=== PATIENT | female | born 1940 | race African-American/Black ===

== ENCOUNTER 2020-02-11 08:52 | Outpatient (CLI) | payer MEDICARE, OTHER ==
[~2020-02-11 08:52] MED LIST: ENALAPRIL MALEAT5 MG ORAL; PANTOPRAZOLE SO40 MG ORAL
--- NOTE | 2020-02-11 18:15 | Consultation ---
DATE OF CONSULTATION: 02/11/2020 CONSULTING PHYSICIAN: Eligio Andrade MD. REFERRING PHYSICIAN: Dr. Winkler. CHIEF COMPLAINT: Anemia, weight loss. HISTORY OF PRESENT ILLNESS: Most of history per chart. This is a 79-year-old female, recently admitted to [facility] back in seems to be in the beginning of October 2019 where she had anemia, had endoscopy and colonoscopy by . Endoscopy showed multiple AVMs in the stomach and duodenum, which required Hemoclip placement and also cauterization. Colonoscopy apparently was normal. The patient is in followup with Dr. Winkler, who has referred to us since the patient had another drop in hemoglobin and hematocrit, black stools, and significant weight loss. PAST MEDICAL HISTORY: 1. History of bowel obstruction requiring surgery. 2. Hypertension. 3. Dementia. 4. History of multiple intestinal AVM. PAST SURGICAL HISTORY: Colon resection. FAMILY HISTORY: Noncontributory. SOCIAL HISTORY: The patient quit tobacco and alcohol many years ago. Denies any IV drug abuse. ALLERGIES: To penicillin. MEDICATIONS: Omeprazole and enalapril. Please see medication reconciliation list. REVIEW OF SYSTEMS: Limited, but positive for constipation, dark stools, and weight loss. PHYSICAL EXAMINATION: VITAL SIGNS: Temperature 98.2, blood pressure 130/60, pulse 80, respirations 20. HEENT: Normocephalic and atraumatic. Mildly pale conjunctivae. NECK: Supple. No evidence of obvious lymphadenopathy. CARDIOVASCULAR: Regular rhythm. Plus S1, S2. LUNGS: Clear to auscultation bilaterally. ABDOMEN: Positive bowel sounds. Soft and nontender. No rebound. No guarding. No peritoneal sign. EXTREMITIES: No cyanosis. No clubbing. No edema. ASSESSMENT: This is a 79-year-old female with history of multiple intestinal AVMs and bleeding, now with drop in hemoglobin and hematocrit and black stools. Also, weight loss and constipation. PLAN: The patient needs to get COVID checked and if it is negative, we will schedule for endoscopy. Continue on PPI. Monitor hemoglobin and hematocrit. Transfuse as needed. In terms of constipation, the patient to be started on Linzess 145 one tablet p.o. daily. We will adjust the dose based on the response to 145. In terms of weight loss, the patient is scheduled to get a CT by Dr. Winkler next week, which we will follow. We also recommend that thyroid tests and tumor markers test on the procedure day. I want to thank, Dr. Winkler, for this kind referral. Eligio Dm Andrade DR: Génesis JOB#: [id number] CC:
[2020-02-12] MEDS ORDERED: ASPIRIN81 MG ORAL (17:31)
[2020-02-12] MEDS ORDERED: LINZESS145 MCG PO (17:31)
== END 2020-02-11 10:52 | disposition home or self-care (01) ==
LOC: PAN 08:52
DX: D64.9 Anemia, unspecified (principal); R63.4 Abnormal weight loss; I10 Essential (primary) hypertension; F03.90 Unspecified dementia, unspecified severity, without behavioral disturbance, psychotic disturbance, mood disturbance, and anxiety; Z88.0 Allergy status to penicillin; K59.00 Constipation, unspecified
CPT/HCPCS: G0463

== ENCOUNTER 2020-02-12 09:16 | Inpatient (IN) | payer MEDICARE, OTHER ==
[~2020-02-12] VITALS: Ht 165.1 cm; Wt 43.1 kg
[2020-02-12] VITALS (7 sets, daily range): BP systolic 107–137; BP diastolic 51–79
--- NOTE | 2020-02-12 09:28 | Emergency Room Report ---
History of Present Illness General Chief Complaint: To Be Triaged Source: Family Member - daughter Present Illness HPI Patient is a 79-year-old female past medical history of AVM with recurrent bleeds and dementia who was brought into the emergency room by her daughter from her oncologist office for anemia. Her daughter patient has intestinal bleeding and went to see her oncologist and contract serviceman who told her that her mother was anemic and needed a blood transfusion. History is limited due to the fact that the patient is demented. Allergies: Coded Allergies: No Known Allergies (Unverified , 08/10/18) Patient History Reviewed Nursing Documentation: PMH: Agreed; PSxH: Agreed Nursing Documentation-PMH Hx Cardiac Problems: Yes Hx Hypertension: Yes Hx Cancer: No Hx Gastrointestinal Problems: Yes Hx Neurological Problems: No Review of Systems All Other Systems: limited - dementia Physical Exam Sp02 EP Interpretation: reviewed, normal General Appearance: no apparent distress, alert, non-toxic Head: normocephalic, atraumatic Eyes: bilateral eye normal inspection, bilateral eye PERRL ENT: hearing grossly normal, normal pharynx, no angioedema, normal voice Neck: full range of motion, supple/symm/no masses Respiratory: chest non-tender, lungs clear, normal breath sounds, speaking full sentences Cardiovascular #1: normal inspection Rectal: black stool, heme positive stool Genitourinary: normal inspection, no CVA tenderness Musculoskeletal: back normal, normal range of motion, gait/station normal, non- tender Psychiatric: other - demetia Skin: no rash Lymphatic: no adenopathy Procedures Critical Care Time Critical Care Time Total critical care time: Approximately 35 minutes. Due to a high probability of clinically significant, life threatening deterioration, the patient required my highest level of preparedness to intervene emergently and I personally spent this critical care time directly and personally managing the patient. This critical care time included obtaining a history; examining the patient; pulse oximetry; ordering and review of studies; arranging urgent treatment with development of a management plan; evaluation of patient's response to treatment ; frequent reassessment; and, discussions with other providers.This critical care time was performed to assess and manage the high probability of imminent, life-threatening deterioration that could result in multi-organ failure. It was exclusive of separately billable procedures and treating other patients and teaching time. Please see MDM section and the rest of the note for further information on patient assessment and treatment. Medical Decision Making Diagnostic Impression: Primary Impression: Upper GI bleed Additional Impression: Anemia ER Course Patient presents with upper GI bleed. Hemoglobin 8.2 with active bleeding. I have ordered for 1 unit of packed red blood cells. Otherwise patient has no electrolyte abnormalities. Her GI doctor is and [facility] Dr. Rendon. Patient admitted for further treatment and evaluation. Laboratory Tests Test 02/12/20 09:21 White Blood Count 10.2 K/UL (4.8-10.8) Red Blood Count 3.66 M/UL (4.20-5.40) L Hemoglobin 8.2 G/DL (12.0-16.0) L Hematocrit 26.3 % (37.0-47.0) L Mean Corpuscular Volume 72 FL (80-99) L Mean Corpuscular Hemoglobin 22.3 PG (27.0-31.0) L Mean Corpuscular Hemoglobin Concent 31.1 G/DL (32.0-36.0) L Red Cell Distribution Width 14.6 % (11.6-14.8) Platelet Count 385 K/UL (150-450) Mean Platelet Volume 5.9 FL (6.5-10.1) L Neutrophils (%) (Auto) 69.7 % (45.0-75.0) Lymphocytes (%) (Auto) 21.3 % (20.0-45.0) Monocytes (%) (Auto) 7.3 % (1.0-10.0) Eosinophils (%) (Auto) 0.6 % (0.0-3.0) Basophils (%) (Auto) 1.1 % (0.0-2.0) Prothrombin Time 10.4 SEC (9.30-11.50) Prothrombin Time INR 1.0 (0.9-1.1) Activated Partial Thromboplast Time 26 SEC (23-33) Sodium Level 139 MMOL/L (136-145) Potassium Level 4.6 MMOL/L (3.5-5.1) Chloride Level 106 MMOL/L (98-107) Carbon Dioxide Level 24 MMOL/L (21-32) Anion Gap 9 mmol/L (5-15) Blood Urea Nitrogen 14 mg/dL (7-18) Creatinine 0.8 MG/DL (0.55-1.30) Estimated Glomerular Filtration Rate > 60 mL/min (>60) Glucose Level 92 MG/DL (74-106) Calcium Level 8.8 MG/DL (8.5-10.1) Magnesium Level 2.0 MG/DL (1.8-2.4) Total Bilirubin 0.2 MG/DL (0.2-1.0) Aspartate Amino Transferase (AST) 22 U/L (15-37) Alanine Aminotransferase (ALT) 21 U/L (12-78) Alkaline Phosphatase 59 U/L (46-116) Total Protein 7.2 G/DL (6.4-8.2) Albumin 4.0 G/DL (3.4-5.0) Globulin 3.2 g/dL Albumin/Globulin Ratio 1.3 (1.0-2.7) Lipase 135 U/L (73-393) Rhythm Strip Diag. Results Rhythm Strip Time: 11:18 EP Interpretation: yes - MD Darlene Rate: 68 Rhythm: NSR, no PVC's, no ectopy Disposition: ADMITTED INPATIENT Condition: Critical Physician Consult: Malaika Garcia M.D. February 12, 2020 09:28
[2020-02-12] MEDS ORDERED: Pantoprazole Inj IVP ONE (09:30)
[2020-02-12] MEDS ORDERED: Pantoprazole 80 MG in NS 250 ML IV ONE (09:30)
--- NOTE | 2020-02-12 09:30 | NUR ---
ED Nurse Note: Pt brought in by daughter to ER from Dr. Winkler's office d/t GI bleed and hgb of 7.5. Respiraitons even and unlabored on room air. Vitals stable as documented.
--- NOTE | 2020-02-12 09:50 | NUR ---
ED Nurse Note: DAUGHTER- LETRICE LESLIE- GRAND SON
[2020-02-12 10:10] LABS: BASOPHILS % (AUTO) 1.1 % (0.0-2.0); EOSINOPHILS % (AUTO) 0.6 % (0.0-3.0); HEMATOCRIT 26.3 % (37.0-47.0); HEMOGLOBIN 8.2 G/DL (12.0-16.0); LYMPHOCYTES % (AUTO) 21.3 % (20.0-45.0); MEAN CORPUSCULAR VOLUME 72 FL (80-99); MONOCYTES % (AUTO) 7.3 % (1.0-10.0); NEUTROPHILS % (AUTO) 69.7 % (45.0-75.0); PLATELET COUNT 385 K/UL (150-450); RED BLOOD COUNT 3.66 M/UL (4.20-5.40); RED CELL DISTRIBUTION WIDTH 14.6 % (11.6-14.8); WHITE BLOOD COUNT 10.2 K/UL (4.8-10.8)
[2020-02-12 10:24] LABS: ANION GAP 9 mmol/L (5-15); BLOOD UREA NITROGEN 14 mg/dL (7-18); CALCIUM 8.8 MG/DL (8.5-10.1); CARBON DIOXIDE 24 MMOL/L (21-32); CHLORIDE 106 MMOL/L (98-107); CREATININE 0.8 MG/DL (0.55-1.30); POTASSIUM 4.6 MMOL/L (3.5-5.1); SODIUM 139 MMOL/L (136-145)
[2020-02-12 10:28] LABS: ALANINE AMINOTRANSFERASE 21 U/L (12-78); ALBUMIN/GLOBULIN RATIO 1.3 (1.0-2.7); ALKALINE PHOSPHATASE 59 U/L (46-116); ASPARTATE AMINO TRANSFERASE 22 U/L (15-37); BILIRUBIN,TOTAL 0.2 MG/DL (0.2-1.0)
--- NOTE | 2020-02-12 11:37 | NUR ---
ED Nurse Note: REPORT GIVEN TO MAGGIE AMBROSE
--- NOTE | 2020-02-12 12:00 | NUR ---
NURSE NOTES: Received report from Gabriella SERRANO, pt a/a/o x1 laying in bed with no signs of distress or other issues at this time. IV on the right BOUDREAUX gauge #20 . per report pt needs to get a unit of PRBC. awaiting from lab to call us when blood is ready. RN will review other orders and will carryon as needed as well will call MD to get additional admission orders. call light within reach. bed in lowest position, side rales up x2. I will f/u as needed.
--- NOTE | 2020-02-12 12:00 | NUR ---
ED Nurse Note: Pt transferred safely to 3E. Belongings verified.
--- NOTE | 2020-02-12 12:30 | NUR ---
NURSE NOTES: RN called patients [facility] to obtain blood consent. Verifies with Asad ALCALA. - also to ask for past medical HX of the patient however pt's daughter is not aware all medical condition of the patient she only mentioned that pt was going to have a procedure this coming Monday at 07:00. in [place] by Dr. Guzman. RN called Dr. Guzman's office to notify that pt is in house. I will f/u as needed.
[2020-02-12] MEDS: Pantoprazole Inj IVP SCH ×2 (13:00→20:53)
[2020-02-12] MEDS ORDERED: Acetaminophen 500mg (ES) tab ORAL PRN (13:00)
--- NOTE | 2020-02-12 14:16 | General Progress Note ---
Assessment/Plan Assessment/Plan: 1. History of bowel obstruction requiring surgery. 2. Hypertension. 3. Dementia. 4. History of multiple intestinal AVM. pending blood transfusion plan EGD and enteroscopy for tomorrow Subjective ROS Limited/Unobtainable: No Allergies: Coded Allergies: No Known Allergies (Unverified , 08/10/18) Objective Last 24 Hour Vital Signs Date Time Temp Pulse Resp B/P (MAP) Pulse Ox O2 Delivery O2 Flow Rate FiO2 02/12/20 12:00 97.8 73 17 111/58 96 Room Air 02/12/20 11:30 97.4 69 17 107/51 95 Room Air 02/12/20 09:30 72 19 Room Air 02/12/20 09:30 98.4 78 19 121/79 97 Room Air 02/12/20 09:16 98.4 75 19 124/75 (91) 96 Room Air Laboratory Tests 02/12/20 09:21: White Blood Count 10.2, Red Blood Count 3.66L, Hemoglobin 8.2L, Hematocrit 26.3L , Mean Corpuscular Volume 72L, Mean Corpuscular Hemoglobin 22.3L, Mean Corpuscular Hemoglobin Concent 31.1L, Red Cell Distribution Width 14.6, Platelet Count 385, Mean Platelet Volume 5.9L, Neutrophils (%) (Auto) 69.7, Lymphocytes (%) (Auto) 21.3, Monocytes (%) (Auto) 7.3, Eosinophils (%) (Auto) 0.6, Basophils (%) (Auto) 1.1, Prothrombin Time 10.4, Prothromb Time International Ratio 1.0, Activated Partial Thromboplast Time 26, Sodium Level 139, Potassium Level 4.6, Chloride Level 106, Carbon Dioxide Level 24, Anion Gap 9, Blood Urea Nitrogen 14, Creatinine 0.8, Estimat Glomerular Filtration Rate > 60, Glucose Level 92, Calcium Level 8.8, Magnesium Level 2.0, Total Bilirubin 0.2, Aspartate Amino Transf (AST/SGOT) 22, Alanine Aminotransferase ( ALT/SGPT) 21, Alkaline Phosphatase 59, Total Protein 7.2, Albumin 4.0, Globulin 3.2, Albumin/Globulin Ratio 1.3, Lipase 135 Height (Feet): 5 Height (Inches): 4.00 Weight (Pounds): 115 General Appearance: alert EENT: normal ENT inspection Neck: supple Cardiovascular: normal rate Respiratory/Chest: decreased breath sounds Abdomen: normal bowel sounds, non tender, soft Extremities: non-tender Eligio Andrade MD February 12, 2020 14:15
--- NOTE | 2020-02-12 17:00 | NUR ---
NURSE NOTES: Blood transfusing done with no signs of adverse reaction at this time we will continue to monitor. VS: 97.9, 18, 137/63, 94% RA
[2020-02-12] MEDS ORDERED: ASPIRIN81 MG ORAL (17:31)
[2020-02-12] MEDS ORDERED: LINZESS145 MCG PO (17:31)
--- NOTE | 2020-02-12 19:20 | NUR ---
Received report from MAGGIE Ramirez. Received pt lying in bed, awake, confused, unable to follow commands. No GI bleed noted. IV patent and intact. Bed alarm on, side rails up x 2, call light within reach. Will continue to monitor.
--- NOTE | 2020-02-12 20:23 | NUR ---
HAND-OFF: Report given to William Sheth pt in stable condition.
[2020-02-12 23:42] LABS: BASOPHILS % (AUTO) 1.2 % (0.0-2.0); EOSINOPHILS % (AUTO) 1.2 % (0.0-3.0); HEMATOCRIT 29.8 % (37.0-47.0); HEMOGLOBIN 9.9 G/DL (12.0-16.0); LYMPHOCYTES % (AUTO) 27.3 % (20.0-45.0); MEAN CORPUSCULAR VOLUME 72 FL (80-99); MONOCYTES % (AUTO) 7.7 % (1.0-10.0); NEUTROPHILS % (AUTO) 62.6 % (45.0-75.0); PLATELET COUNT 339 K/UL (150-450); RED BLOOD COUNT 4.13 M/UL (4.20-5.40); RED CELL DISTRIBUTION WIDTH 15.3 % (11.6-14.8); WHITE BLOOD COUNT 7.7 K/UL (4.8-10.8)
[2020-02-13] VITALS (10 sets, daily range): BP systolic 95–143; BP diastolic 53–82
--- NOTE | 2020-02-13 03:15 | History and Physical Report ---
DATE OF ADMISSION: 02/12/2020 CHIEF COMPLAINT: Anemia, possible GI bleed. HISTORY OF PRESENT ILLNESS: Patient is a 79-year-old female. She has a history of hypertensive heart disease. She has a prior history of colon resection for a possible bowel obstruction. She was previously admitted to [facility] [place] approximately 2 to 3 months ago for UTI. At that time, she was found to have GI bleeding. She underwent endoscopy and had several AVMs that required hemoclip placement. She had been stable. According to the family members, she has been having black stools now for "months." She saw her dry box operator who noted patient was more anemic and there was concern about possible GI bleed and she was sent to the emergency room. On evaluation there, her hemoglobin was 8.2. Patient is currently being transfused and is now being admitted for further evaluation for acute GI bleed. Patient has dementia at baseline. She is unable to provide any additional history. PAST MEDICAL HISTORY: As above. PAST SURGICAL HISTORY: As above. CURRENT MEDICATIONS: Reconciled and reviewed. ALLERGIES: Include penicillin. FAMILY HISTORY: Noncontributory. SOCIAL HISTORY: There is no known history of tobacco, ethanol, or drugs. REVIEW OF SYSTEMS: From the patient is unobtainable as she is confused. PHYSICAL EXAMINATION: VITAL SIGNS: Temperature 97.8, pulse 73, respirations 17, blood pressure 111/58. GENERAL: Patient is a thin elderly female, in no apparent distress. She is awake, alert, follows simple commands, but is confused. HEENT: Head is normocephalic, atraumatic. Oropharynx is clear. Mucous membranes are moist. NECK: Supple. There is no adenopathy or jugular venous distention. HEART: Regular rate and rhythm without murmurs, rubs, or gallops. LUNGS: Clear to auscultation bilaterally. ABDOMEN: Soft, nontender, nondistended. EXTREMITIES: Without clubbing, cyanosis, or edema. NEUROLOGICAL: Patient is confused, but does move all four extremities. Motor strength is 5/5 bilaterally. LABORATORY DATA: Labs showed white count of 10, hemoglobin 8.2. Sodium 139, potassium is 4.6, creatinine of 0.8. ASSESSMENT: This is a pleasant 79-year-old female with history of hypertension, prior history of GI bleed secondary to AVMs admitted with complaints of recurrent anemia and possible GI bleed. PLAN: 1. IV proton pump inhibitor. 2. Clear liquid diet. 3. IV fluids. 4. Hold aspirin. 5. Transfuse for hemoglobin greater than 8. 6. Endoscopy per GI. Rob Garcia M.D. DR: KRISTINE JOB#: [id number] CC:
--- NOTE | 2020-02-13 07:35 | NUR ---
NURSE NOTES: Patient is in bed asleep. Stable. Breathing is even and unlabored. No visible signs of distress noted. Patient is in bed in locked and lowest position with call light within reach. All safety measures provided. Will continue to monitor.
--- NOTE | 2020-02-13 07:49 | General Progress Note ---
Assessment/Plan Problem List: (1) Encephalopathy acute ICD Codes: G93.40 - Encephalopathy, unspecified SNOMED: 82578407, 461782188 (2) Anemia ICD Codes: D64.9 - Anemia, unspecified SNOMED: 458915601 (3) Upper GI bleed ICD Codes: K92.2 - Gastrointestinal hemorrhage, unspecified SNOMED: 13024903 Status: stable Assessment/Plan: npo ivf IV ppi scd endoscopy today Subjective ROS Limited/Unobtainable: Yes Constitutional: Reports: malaise, weakness HEENT: Reports: no symptoms Cardiovascular: Reports: no symptoms Respiratory: Reports: cough Gastrointestinal/Abdominal: Reports: blood in stool Genitourinary: Reports: no symptoms Neurologic/Psychiatric: Reports: pre-existing deficit Endocrine: Reports: no symptoms Hematologic/Lymphatic: Reports: anemia Allergies: Coded Allergies: PENICILLINS (Verified Allergy, Unknown, 02/12/20) All Systems: reviewed and negative except above Subjective no events. confused at baseline. s/p 1 unit prbcs. on PPI. npo for endoscopy today. Objective Last 24 Hour Vital Signs Date Time Temp Pulse Resp B/P (MAP) Pulse Ox O2 Delivery O2 Flow Rate FiO2 02/13/20 04:00 97.4 73 17 123/68 (86) 96 02/13/20 00:00 97.8 71 17 143/60 (87) 96 02/12/20 21:00 Room Air 02/12/20 20:00 97.6 68 18 127/66 (86) 97 02/12/20 16:00 98.0 85 18 120/75 (90) 94 02/12/20 15:49 Room Air 02/12/20 13:00 97.8 72 18 113/72 (86) 94 02/12/20 12:30 97.7 72 18 129/66 (87) 94 02/12/20 12:00 97.8 73 17 111/58 96 Room Air 02/12/20 12:00 97.9 78 18 137/63 (87) 96 02/12/20 11:30 97.4 69 17 107/51 95 Room Air 02/12/20 09:30 72 19 Room Air 02/12/20 09:30 98.4 78 19 121/79 97 Room Air 02/12/20 09:16 98.4 75 19 124/75 (91) 96 Room Air Intake and Output 5/13/20 5/14/20 19:00 07:00 Intake Total 1291 ml Output Total 250 ml Balance 1291 ml -250 ml Intake Oral 236 ml IV Total 1055 ml Output Urine Total 250 ml # Bowel Movements 1 Laboratory Tests 02/12/20 09:21: White Blood Count 10.2, Red Blood Count 3.66L, Hemoglobin 8.2L, Hematocrit 26.3L , Mean Corpuscular Volume 72L, Mean Corpuscular Hemoglobin 22.3L, Mean Corpuscular Hemoglobin Concent 31.1L, Red Cell Distribution Width 14.6, Platelet Count 385, Mean Platelet Volume 5.9L, Neutrophils (%) (Auto) 69.7, Lymphocytes (%) (Auto) 21.3, Monocytes (%) (Auto) 7.3, Eosinophils (%) (Auto) 0.6, Basophils (%) (Auto) 1.1, Prothrombin Time 10.4, Prothromb Time International Ratio 1.0, Activated Partial Thromboplast Time 26, Sodium Level 139, Potassium Level 4.6, Chloride Level 106, Carbon Dioxide Level 24, Anion Gap 9, Blood Urea Nitrogen 14, Creatinine 0.8, Estimat Glomerular Filtration Rate > 60, Glucose Level 92, Calcium Level 8.8, Magnesium Level 2.0, Total Bilirubin 0.2, Aspartate Amino Transf (AST/SGOT) 22, Alanine Aminotransferase ( ALT/SGPT) 21, Alkaline Phosphatase 59, Total Protein 7.2, Albumin 4.0, Globulin 3.2, Albumin/Globulin Ratio 1.3, Lipase 135 02/12/20 23:05: White Blood Count 7.7, Red Blood Count 4.13L, Hemoglobin 9.9L, Hematocrit 29.8L , Mean Corpuscular Volume 72L, Mean Corpuscular Hemoglobin 23.9L, Mean Corpuscular Hemoglobin Concent 33.1, Red Cell Distribution Width 15.3H, Platelet Count 339, Mean Platelet Volume 5.6L, Neutrophils (%) (Auto) 62.6, Lymphocytes (%) (Auto) 27.3, Monocytes (%) (Auto) 7.7, Eosinophils (%) (Auto) 1.2, Basophils (%) (Auto) 1.2 Height (Feet): 5 Height (Inches): 5.00 Weight (Pounds): 232 General Appearance: WD/WN, alert, confused EENT: PERRL/EOMI, normal ENT inspection Neck: non-tender, normal alignment, supple Cardiovascular: normal peripheral pulses, normal rate, regular rhythm Respiratory/Chest: chest wall non-tender, lungs clear, normal breath sounds, no respiratory distress, no accessory muscle use Abdomen: normal bowel sounds, non tender, soft, no organomegaly Edema: no edema noted Arm (L), no edema noted Arm (R), no edema noted Leg (L), no edema noted Leg (R), no edema noted Pedal (L), no edema noted Pedal (R), no edema noted Generalized Neurologic: anodic operator II-XII grossly normal, responsive, disoriented Skin: normal pigmentation Rob Garcia MD February 13, 2020 07:49
[2020-02-13] MEDS: Pantoprazole Inj IVP SCH ×2 (08:29→21:13)
--- NOTE | 2020-02-13 08:30 | NUR ---
NURSE NOTES: SCD on as ordered.
[2020-02-13 08:32] LABS: BASOPHILS % (AUTO) 0.9 % (0.0-2.0); HEMATOCRIT 30.5 % (37.0-47.0); HEMOGLOBIN 9.7 G/DL (12.0-16.0); LYMPHOCYTES % (AUTO) 22.8 % (20.0-45.0); MEAN CORPUSCULAR VOLUME 74 FL (80-99); MONOCYTES % (AUTO) 9.2 % (1.0-10.0); PLATELET COUNT 365 K/UL (150-450); RED BLOOD COUNT 4.14 M/UL (4.20-5.40); RED CELL DISTRIBUTION WIDTH 15.3 % (11.6-14.8); WHITE BLOOD COUNT 6.6 K/UL (4.8-10.8)
--- NOTE | 2020-02-13 08:41 | Anethesia Preoperative Eval ---
Anesthesia Pre-op PMH/ROS General Date of Evaluation: February 13, 2020 Time of Evaluation: 08:37 Anesthesiologist: cathi ASA Score: ASA 4 Mallampati Score Class I : Soft palate, uvula, fauces, pillars visible Class II: Soft palate, uvula, fauces visible Class III: Soft palate, base of uvula visible Class IV: Only hard plate visible Mallampati Classification: Class III Surgeon: kade Diagnosis: gi bleed, anemia Surgical Procedure: enteroscopy w/ ablation Anesthesia History: none Social History: smoking - status unknown Family History: no anesthesia problems Allergies: Coded Allergies: PENICILLINS (Verified Allergy, Unknown, 02/12/20) Medications: see eMAR Patient NPO?: Yes Past Medical History Cardiovascular: Reports: HTN, other - avm Gastrointestinal/Genitourinary: Reports: GERD, other - gi bleed, hx/o bowel obstruction, urinary incontinence Neurologic/Psychiatric: Reports: dementia, other - encephalopathy, muscle weakness Hematology/Immune: Reports: anemia Anesthesia Pre-op Phys. Exam Physician Exam Last Vital Signs Date Time Temp Pulse Resp B/P (MAP) Pulse Ox O2 Delivery O2 Flow Rate FiO2 02/13/20 04:00 97.4 73 17 123/68 (86) 96 02/12/20 21:00 Room Air Constitutional: NAD Neurologic: other - contracted, confused Cardiovascular: RRR Respiratory: CTA Gastrointestinal: S/NT/ND Airway Exam Mallampati Score: Class II MO: limited Neck: flexible TMD: 2fb ROM: limited Teeth: missing Anesthesia Pre-op A/P Labs Hematology Test 02/12/20 09:21 02/12/20 23:05 02/13/20 07:55 White Blood Count 10.2 K/UL (4.8-10.8) 7.7 K/UL (4.8-10.8) 6.6 K/UL (4.8-10.8) Red Blood Count 3.66 M/UL (4.20-5.40) L 4.13 M/UL (4.20-5.40) L 4.14 M/UL (4.20-5.40) L Hemoglobin 8.2 G/DL (12.0-16.0) L 9.9 G/DL (12.0-16.0) L 9.7 G/DL (12.0-16.0) L Hematocrit 26.3 % (37.0-47.0) L 29.8 % (37.0-47.0) L 30.5 % (37.0-47.0) L Mean Corpuscular Volume 72 FL (80-99) L 72 FL (80-99) L 74 FL (80-99) L Mean Corpuscular Hemoglobin 22.3 PG (27.0-31.0) L 23.9 PG (27.0-31.0) L 23.4 PG (27.0-31.0) L Mean Corpuscular Hemoglobin Concent 31.1 G/DL (32.0-36.0) L 33.1 G/DL (32.0-36.0) 31.6 G/DL (32.0-36.0) L Red Cell Distribution Width 14.6 % (11.6-14.8) 15.3 % (11.6-14.8) H 15.3 % (11.6-14.8) H Platelet Count 385 K/UL (150-450) 339 K/UL (150-450) 365 K/UL (150-450) Mean Platelet Volume 5.9 FL (6.5-10.1) L 5.6 FL (6.5-10.1) L 6.2 FL (6.5-10.1) L Neutrophils (%) (Auto) 69.7 % (45.0-75.0) 62.6 % (45.0-75.0) 65.0 % (45.0-75.0) Lymphocytes (%) (Auto) 21.3 % (20.0-45.0) 27.3 % (20.0-45.0) 22.8 % (20.0-45.0) Monocytes (%) (Auto) 7.3 % (1.0-10.0) 7.7 % (1.0-10.0) 9.2 % (1.0-10.0) Eosinophils (%) (Auto) 0.6 % (0.0-3.0) 1.2 % (0.0-3.0) 2.0 % (0.0-3.0) Basophils (%) (Auto) 1.1 % (0.0-2.0) 1.2 % (0.0-2.0) 0.9 % (0.0-2.0) Coagulation Test 02/12/20 09:21 Prothrombin Time 10.4 SEC (9.30-11.50) Prothromb Time International Ratio 1.0 (0.9-1.1) Activated Partial Thromboplast Time 26 SEC (23-33) Chemistry Test 02/12/20 09:21 02/13/20 07:55 Sodium Level 139 MMOL/L (136-145) Pending Potassium Level 4.6 MMOL/L (3.5-5.1) Pending Chloride Level 106 MMOL/L (98-107) Pending Carbon Dioxide Level 24 MMOL/L (21-32) Pending Anion Gap 9 mmol/L (5-15) Blood Urea Nitrogen 14 mg/dL (7-18) Pending Creatinine 0.8 MG/DL (0.55-1.30) Pending Estimat Glomerular Filtration Rate > 60 mL/min (>60) Pending Glucose Level 92 MG/DL (74-106) Pending Calcium Level 8.8 MG/DL (8.5-10.1) Pending Magnesium Level 2.0 MG/DL (1.8-2.4) Total Bilirubin 0.2 MG/DL (0.2-1.0) Aspartate Amino Transf (AST/SGOT) 22 U/L (15-37) Alanine Aminotransferase (ALT/SGPT) 21 U/L (12-78) Alkaline Phosphatase 59 U/L (46-116) Total Protein 7.2 G/DL (6.4-8.2) Albumin 4.0 G/DL (3.4-5.0) Globulin 3.2 g/dL Albumin/Globulin Ratio 1.3 (1.0-2.7) Lipase 135 U/L (73-393) Risk Assessment & Plan Assessment: asa4 Plan: mac Status Change Before Surgery: No Pre-Antibiotics Drug: Yael Petit MD February 13, 2020 08:41
[2020-02-13] MEDS ORDERED: fentaNYL 100 mcg/2 mL IV PRN (08:45)
[2020-02-13] MEDS ORDERED: Atropine Inj 1mg/10ml Syr IV PRN (08:45)
[2020-02-13] MEDS ORDERED: Midazolam 2mg/2ml Inj IVP PRN (08:45)
[2020-02-13] MEDS ORDERED: DiphenhydrAMINE 50mg/ml Inj IVP PRN (08:45)
[2020-02-13 08:47] LABS: ANION GAP 9 mmol/L (5-15); BLOOD UREA NITROGEN 8 mg/dL (7-18); CALCIUM 9.2 MG/DL (8.5-10.1); CARBON DIOXIDE 28 MMOL/L (21-32); CHLORIDE 107 MMOL/L (98-107); CREATININE 0.7 MG/DL (0.55-1.30); SODIUM 144 MMOL/L (136-145)
[2020-02-13] MEDS ORDERED: Enalapril 5mg tab ORAL SCH (09:00)
--- NOTE | 2020-02-13 09:15 | NUR ---
PT NOTES MD order received for PT evalation and treatment. PT evaluation completed, patient required maximal assist with bed mobility and transfers. Patient with limited cognitive function and unable to participate with attempts to progress with gait with FWW during eval. Patient will need skilled PT to progress with functional mobility and strength. Patient will require repetition of tasks for carry over due to dementia. Per nursing daughter stated that patient was ambulatory at home prior to admit with assist. Will see patient 5x/ wk x 2 weeks or for length of stay. Recommend SNF at discharge or home with 24 hr assist with family. Thank you for this referral.
--- NOTE | 2020-02-13 09:50 | Pre-Procedure Note/Attestation ---
Pre-Procedure Note/Attestation Complete Prior to Procedure Planned Procedure: not applicable Procedure Narrative: enteroscopy Indications for Procedure Pre-Operative Diagnosis: gib Attestation I attest that I discussed the nature of the procedure; its benefits; risks and complications; and alternatives (and the risks and benefits of such alternatives ), prior to the procedure, with the patient (or the patient's legal aircraft sales representative). I attest that, if there was a reasonable possibility of needing a blood transfusion, the patient (or the patient's legal aircraft sales representative) was given the [facility] standardized written summary, pursuant to the [place]w [place] Blood Safety Act ([place] Health and Safety Code # 1645, as amended). I attest that I re-evaluated the patient just prior to the surgery and that there has been no change in the patient's H&P, except as documented below: Eligio Andrade MD February 13, 2020 09:50
[2020-02-13] MEDS ORDERED: Lidocaine 1% MPF 10mg/ml 5ml ONE (11:00)
[2020-02-13] MEDS ORDERED: Esmolol 100mg/10ml Inj ONE (11:00)
[2020-02-13] MEDS ORDERED: NS 500ML IVPB ONE (11:15)
--- NOTE | 2020-02-13 11:15 | NUR ---
NURSE NOTES: Patient taken to GI lab.
--- NOTE | 2020-02-13 12:03 | Immediate Post-Op Evaluation ---
Immediate Post-Op Evalulation Immediate Post-Op Evalulation Procedure: enteroscopy Date of Evaluation: February 13, 2020 Time of Evaluation: 11:56 IV Fluids: 150ml 0.9ns Blood Products: none Estimated Blood Loss: negligible Blood Pressure Systolic: 96 Blood Pressure Diastolic: 60 Pulse Rate: 83 Respiratory Rate: 18 O2 Sat by Pulse Oximetry: 100 Temperature (Fahrenheit): 97.4 Pain Score (1-10): 0 Nausea: No Vomiting: No Complications none Patient Status: awake, reacts, patent Hydration Status: adequate Drug: Yael Petit MD February 13, 2020 12:03
--- NOTE | 2020-02-13 12:04 | 48 Hour Post Anesthesia Eval ---
Post Anesthesia Evaluation Procedure: enteroscopy Date of Evaluation: February 13, 2020 Time of Evaluation: 11:58 Blood Pressure Systolic: 107 0: 59 Pulse Rate: 68 Respiratory Rate: 18 Temperature (Fahrenheit): 97.4 O2 Sat by Pulse Oximetry: 100 Airway: patent Nausea: No Vomiting: No Pain Intensity: 0 Hydration Status: adequate Cardiopulmonary Status: stable Mental Status/LOC: patient returned to baseline Post-Anesthesia Complications: none Follow-up care needed: N/A Yael Lehman MD February 13, 2020 12:04
--- NOTE | 2020-02-13 12:24 | NUR ---
NURSE NOTES: Patient arrived on unit via gurney. Transferred over to hospital bed with 2 person assist without incident. Patient is stable. Denies pain or SOB. Breathing is even and unlabored. VSS. No visible signs of distress noted. Patient is in bed in locked and lowest position with call light within reach. All safety measures provided. Will continue to monitor.
--- NOTE | 2020-02-13 12:27 | NUR ---
*-* INSURANCE *-* ALL AVAILABLE CLINICALS HAVE BEEN FAXED TO: [facility] P- [phone] F- [phone]....REVIEW/CLINICAL
--- NOTE | 2020-02-13 12:47 | Endoscopy Procedure Note ---
Endoscopy Procedure Note General Indication for Procedure: gib Procedures Performed: jejunostomy tube Operative Findings/Diagnosis: avm Specimen: none Pt Tolerated Procedure Well: Yes Estimated Blood Loss: none Anesthesia Anesthesiologist: luann Anesthesia: MAC Inserted Devices Implant(s) used?: No GI Core Measures 50 yrs or older w/o bx or poly: Not Applicable 10yrs. F/U recommended: Not Applicable Eligio Andrade MD February 13, 2020 12:47
[2020-02-13 16:20] LABS: BASOPHILS % (AUTO) 1.1 % (0.0-2.0); EOSINOPHILS % (AUTO) 0.6 % (0.0-3.0); HEMATOCRIT 32.1 % (37.0-47.0); HEMOGLOBIN 9.8 G/DL (12.0-16.0); MEAN CORPUSCULAR VOLUME 77 FL (80-99); MONOCYTES % (AUTO) 6.7 % (1.0-10.0); NEUTROPHILS % (AUTO) 74.6 % (45.0-75.0); PLATELET COUNT 386 K/UL (150-450); RED BLOOD COUNT 4.14 M/UL (4.20-5.40); RED CELL DISTRIBUTION WIDTH 17.6 % (11.6-14.8); WHITE BLOOD COUNT 7.2 K/UL (4.8-10.8)
--- NOTE | 2020-02-13 17:18 | NUR ---
CASE MANAGEMENT: INITIAL REVIEW 79YR OLD MALE FROM [facility] CC:GENERALIZED WEAKNESS SI:UPPER GI BLEED . ANEMIA 98.4 75 19 124/75 96% ON RA H/H 8.2/26.3 IS:IV PROTONIX X2 IVF NS BOLUS \: [facility]E [facility]G UNIT DCP: HOME WHEN STABLE PLAN: BLOOD TX X1 CASE MANAGEMENT: REVIEW 02/13/20 SI:UPPER GI BLEED . ANEMIA 97.3 76 13 107/59 99% ON RA H/H 9.7/30.5 IS:IV PROTONIX BID IN SURGERY NOW \: [facility]G UN[facility] DCP: HOME WHEN STABLE PLAN: GI LAB ENTEROSCOPY WITH ABLATION TODAY \: [facility]E MED SURG UNIT DCP:
--- NOTE | 2020-02-13 19:30 | NUR ---
HAND-OFF: Report given to Hedy SERRANO. Patient is stable.
--- NOTE | 2020-02-13 19:35 | NUR ---
NURSE NOTES: Received report from MAGGIE Garcias. Patient alert, sleeping but easily awakened. Bed in low position, locked, side rails up x2, call light within reach. IV site intact. No BM at this time, stool OB uncollected. No distress noted; will continue to monitor.
--- NOTE | 2020-02-13 20:59 | Procedure Note ---
DATE OF PROCEDURE: 02/13/2020 SURGEON: Eligio Andrade MD PROCEDURE: Enteroscopy. INDICATION: Upper GI bleeding. REASON FOR PROCEDURE: The procedure, risks, benefits, and possible consequences, including hemorrhage, aspiration, perforation and infection, and alternative treatments, were explained to the patient/legal guardian by Dr. Eligio Andrade and the patient/legal guardian understood and accepted these risks. DESCRIPTION OF PROCEDURE: After informed consent was obtained and the patient was adequately sedated, the pediatric colonoscope was advanced from mouth into the fourth portion of the duodenum. We could not advance the procedure beyond this point given the patient was uncomfortable. In the second portion of the duodenum, we saw 3 clips. All clips AVMs in the past. Based on prior notes, there was minimum blood around this area most probably oozing from the clip site, but there was no any further bleeding. We saw another maybe 2 to 3 small AVMs in the stomach and in the small bowel. These are very small and thought to be causing melena. At this time, the upper endoscope was retrieved and procedure was terminated. SUMMARY OF FINDINGS: 1. 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 2. Three clips seen in the duodenum from prior procedures. RECOMMENDATIONS: Resume diet. Monitor labs. Transfuse as needed. The patient will most probably benefit from capsule endoscopy as an outpatient for further evaluation of upper GI bleeding. I want to thank Dr. Garcia for this kind referral. Eligio Andrade M.D. DR: Ju JOB#: [id number] CC: Dm Calvo
[2020-02-13 22:59] LABS: BASOPHILS % (AUTO) 0.9 % (0.0-2.0); EOSINOPHILS % (AUTO) 1.2 % (0.0-3.0); HEMATOCRIT 32.5 % (37.0-47.0); HEMOGLOBIN 9.6 G/DL (12.0-16.0); LYMPHOCYTES % (AUTO) 24.7 % (20.0-45.0); MEAN CORPUSCULAR VOLUME 77 FL (80-99); MONOCYTES % (AUTO) 10.1 % (1.0-10.0); NEUTROPHILS % (AUTO) 63.1 % (45.0-75.0); PLATELET COUNT 376 K/UL (150-450); RED BLOOD COUNT 4.21 M/UL (4.20-5.40); RED CELL DISTRIBUTION WIDTH 17.5 % (11.6-14.8); WHITE BLOOD COUNT 7.3 K/UL (4.8-10.8)
[2020-02-14] VITALS: BP 119/87
[2020-02-14 04:00] VITALS: BP 99/49
--- NOTE | 2020-02-14 07:20 | General Progress Note ---
Assessment/Plan Problem List: (1) Encephalopathy acute ICD Codes: G93.40 - Encephalopathy, unspecified SNOMED: 62672441, 621528067 (2) Anemia ICD Codes: D64.9 - Anemia, unspecified SNOMED: 087525279 (3) Upper GI bleed ICD Codes: K92.2 - Gastrointestinal hemorrhage, unspecified SNOMED: 11180737 Status: stable Assessment/Plan: monitor for bleeding serial cbc PPI repeat stool ob possible capsule endoscopy d/w dtr- does not want snf Subjective ROS Limited/Unobtainable: No Constitutional: Reports: malaise, weakness HEENT: Reports: no symptoms Cardiovascular: Reports: no symptoms Respiratory: Reports: no symptoms Gastrointestinal/Abdominal: Reports: no symptoms Genitourinary: Reports: no symptoms Neurologic/Psychiatric: Reports: anxiety, emotional problems Endocrine: Reports: no symptoms Hematologic/Lymphatic: Reports: anemia Allergies: Coded Allergies: PENICILLINS (Verified Allergy, Unknown, 02/12/20) All Systems: reviewed and negative except above Subjective no events. GI noted. no bleeding. very confused. dtr wants pt to be walked daily. no fever or chills. repeat stool ob ordered. Objective Last 24 Hour Vital Signs Date Time Temp Pulse Resp B/P (MAP) Pulse Ox O2 Delivery O2 Flow Rate FiO2 02/14/20 04:00 97.8 70 19 99/49 (66) 98 02/14/20 00:00 97.8 83 19 119/87 (98) 100 02/13/20 21:00 Room Air 02/13/20 20:05 84 18 96 02/13/20 20:00 97.3 80 19 137/82 (100) 80 02/13/20 16:00 97.5 76 18 117/64 (81) 96 02/13/20 12:23 97.2 68 17 114/62 (79) 93 02/13/20 12:04 68 18 100 02/13/20 12:03 83 18 100 02/13/20 12:00 97.3 76 13 107/59 99 Room Air 02/13/20 11:55 68 22 95/59 99 Nasal Cannula 3 02/13/20 11:50 86 17 96/60 100 Nasal Cannula 3 02/13/20 11:44 97.4 100 21 106/53 100 Nasal Cannula 3 5/14/20 09:00 Room Air 02/13/20 08:00 98.1 65 17 113/64 (80) 96 Intake and Output 02/13/20 02/14/20 19:00 07:00 Intake Total 200 ml Output Total 100 ml Balance 200 ml -100 ml IV Total 200 ml Output Urine Total 100 ml # Voids 1 Laboratory Tests 02/13/20 07:55: White Blood Count 6.6, Red Blood Count 4.14L, Hemoglobin 9.7L, Hematocrit 30.5L , Mean Corpuscular Volume 74L, Mean Corpuscular Hemoglobin 23.4L, Mean Corpuscular Hemoglobin Concent 31.6L, Red Cell Distribution Width 15.3H, Platelet Count 365, Mean Platelet Volume 6.2L, Neutrophils (%) (Auto) 65.0, Lymphocytes (%) (Auto) 22.8, Monocytes (%) (Auto) 9.2, Eosinophils (%) (Auto) 2.0, Basophils (%) (Auto) 0.9, Sodium Level 144, Potassium Level 4.0, Chloride Level 107, Carbon Dioxide Level 28, Anion Gap 9, Blood Urea Nitrogen 8, Creatinine 0.7, Estimat Glomerular Filtration Rate > 60, Glucose Level 90, Calcium Level 9.2 02/13/20 15:15: White Blood Count 7.2, Red Blood Count 4.14L, Hemoglobin 9.8L, Hematocrit 32.1L , Mean Corpuscular Volume 77L, Mean Corpuscular Hemoglobin 23.6L, Mean Corpuscular Hemoglobin Concent 30.5L, Red Cell Distribution Width 17.6H, Platelet Count 386, Mean Platelet Volume 7.3, Neutrophils (%) (Auto) 74.6, Lymphocytes (%) (Auto) 17.0L, Monocytes (%) (Auto) 6.7, Eosinophils (%) (Auto) 0.6, Basophils (%) (Auto) 1.1 02/13/20 22:50: White Blood Count 7.3, Red Blood Count 4.21, Hemoglobin 9.6L, Hematocrit 32.5L, Mean Corpuscular Volume 77L, Mean Corpuscular Hemoglobin 22.9L, Mean Corpuscular Hemoglobin Concent 29.7L, Red Cell Distribution Width 17.5H, Platelet Count 376, Mean Platelet Volume 7.9, Neutrophils (%) (Auto) 63.1, Lymphocytes (%) (Auto) 24.7, Monocytes (%) (Auto) 10.1H, Eosinophils (%) (Auto) 1.2, Basophils (%) (Auto) 0.9 Height (Feet): 5 Height (Inches): 5.00 Weight (Pounds): 232 General Appearance: WD/WN, alert, confused EENT: PERRL/EOMI, normal ENT inspection Neck: non-tender, normal alignment, supple Cardiovascular: normal peripheral pulses, normal rate, regular rhythm Respiratory/Chest: chest wall non-tender, lungs clear, normal breath sounds, no respiratory distress Abdomen: normal bowel sounds, non tender, soft, no organomegaly Edema: no edema noted Arm (L), no edema noted Arm (R), no edema noted Leg (L), no edema noted Leg (R), no edema noted Pedal (L), no edema noted Pedal (R), no edema noted Generalized Neurologic: alert, responsive, disoriented Lymphatic: normal anterior cervical (L), normal anterior cervical (R) Rob Garcia MD February 14, 2020 07:20
--- NOTE | 2020-02-14 07:30 | NUR ---
NURSE NOTES: Patient is in bed asleep. Stable. Breathing is even and unlabored. No visible signs of distress noted. Discussed plan of care with Dr. Garcia and will continue current plan of care. All safety measures provided. WIll continue to monitor.
--- NOTE | 2020-02-14 07:30 | NUR ---
HAND-OFF: Report given to MAGGIE Garcias and MAGGIE Pineda.Patient in stable condition.
--- NOTE | 2020-02-14 07:33 | NUR ---
NURSE NOTES: Received report from Hedy SERRANO .Pt sleeping. No apparent distress on room air. IV site is on right hand. Side rales up x3.Pt on low locked position.Bed alarm on. Call light within reach. Will continue to monitor.
[2020-02-14 07:43] LABS: BASOPHILS % (AUTO) 0.6 % (0.0-2.0); EOSINOPHILS % (AUTO) 0.8 % (0.0-3.0); HEMOGLOBIN 9.6 G/DL (12.0-16.0); LYMPHOCYTES % (AUTO) 21.7 % (20.0-45.0); MEAN CORPUSCULAR VOLUME 74 FL (80-99); MONOCYTES % (AUTO) 7.9 % (1.0-10.0); NEUTROPHILS % (AUTO) 68.9 % (45.0-75.0); PLATELET COUNT 353 K/UL (150-450); RED BLOOD COUNT 4.08 M/UL (4.20-5.40); RED CELL DISTRIBUTION WIDTH 15.4 % (11.6-14.8); WHITE BLOOD COUNT 7.1 K/UL (4.8-10.8)
[2020-02-14 08:00] VITALS: BP 124/74
[2020-02-14] MEDS: Pantoprazole Inj IVP SCH ×2 (09:11→21:44)
--- NOTE | 2020-02-14 09:41 | General Progress Note ---
Assessment/Plan Status: stable Assessment/Plan: 1. History of bowel obstruction requiring surgery. 2. Hypertension. 3. Dementia. 4. History of multiple intestinal AVM. s/p enteroscopy yesterday without active bleeding stable H&H stool ob not available recommend out patient fu for capsule endoscopy Subjective ROS Limited/Unobtainable: No Allergies: Coded Allergies: PENICILLINS (Verified Allergy, Unknown, 02/12/20) Objective Last 24 Hour Vital Signs Date Time Temp Pulse Resp B/P (MAP) Pulse Ox O2 Delivery O2 Flow Rate FiO2 02/14/20 09:00 Room Air 02/14/20 08:00 97.7 124/74 (91) 02/14/20 04:00 97.8 70 19 99/49 (66) 98 02/14/20 00:00 97.8 83 19 119/87 (98) 100 02/13/20 21:00 Room Air 02/13/20 20:05 84 18 96 02/13/20 20:00 97.3 80 19 137/82 (100) 80 02/13/20 16:00 97.5 76 18 117/64 (81) 96 02/13/20 12:23 97.2 68 17 114/62 (79) 93 02/13/20 12:04 68 18 100 02/13/20 12:03 83 18 100 02/13/20 12:00 97.3 76 13 107/59 99 Room Air 02/13/20 11:55 68 22 95/59 99 Nasal Cannula 3 02/13/20 11:50 86 17 96/60 100 Nasal Cannula 3 02/13/20 11:44 97.4 100 21 106/53 100 Nasal Cannula 3 Intake and Output 02/13/20 02/14/20 19:00 07:00 Intake Total 200 ml Output Total 100 ml Balance 200 ml -100 ml IV Total 200 ml Output Urine Total 100 ml # Voids 1 Laboratory Tests 02/13/20 15:15: White Blood Count 7.2, Red Blood Count 4.14L, Hemoglobin 9.8L, Hematocrit 32.1L , Mean Corpuscular Volume 77L, Mean Corpuscular Hemoglobin 23.6L, Mean Corpuscular Hemoglobin Concent 30.5L, Red Cell Distribution Width 17.6H, Platelet Count 386, Mean Platelet Volume 7.3, Neutrophils (%) (Auto) 74.6, Lymphocytes (%) (Auto) 17.0L, Monocytes (%) (Auto) 6.7, Eosinophils (%) (Auto) 0.6, Basophils (%) (Auto) 1.1 02/13/20 22:50: White Blood Count 7.3, Red Blood Count 4.21, Hemoglobin 9.6L, Hematocrit 32.5L, Mean Corpuscular Volume 77L, Mean Corpuscular Hemoglobin 22.9L, Mean Corpuscular Hemoglobin Concent 29.7L, Red Cell Distribution Width 17.5H, Platelet Count 376, Mean Platelet Volume 7.9, Neutrophils (%) (Auto) 63.1, Lymphocytes (%) (Auto) 24.7, Monocytes (%) (Auto) 10.1H, Eosinophils (%) (Auto) 1.2, Basophils (%) (Auto) 0.9 02/14/20 07:10: White Blood Count 7.1, Red Blood Count 4.08L, Hemoglobin 9.6L, Hematocrit 30.0L , Mean Corpuscular Volume 74L, Mean Corpuscular Hemoglobin 23.4L, Mean Corpuscular Hemoglobin Concent 31.9L, Red Cell Distribution Width 15.4H, Platelet Count 353, Mean Platelet Volume 6.3L, Neutrophils (%) (Auto) 68.9, Lymphocytes (%) (Auto) 21.7, Monocytes (%) (Auto) 7.9, Eosinophils (%) (Auto) 0.8, Basophils (%) (Auto) 0.6 Height (Feet): 5 Height (Inches): 5.00 Weight (Pounds): 232 General Appearance: no apparent distress EENT: normal ENT inspection Neck: supple Cardiovascular: normal rate Respiratory/Chest: decreased breath sounds Abdomen: normal bowel sounds, non tender, soft Extremities: non-tender Eligio Andrade MD February 14, 2020 09:41
--- NOTE | 2020-02-14 11:13 | NUR ---
CASE MANAGEMENT: REVIEW 02/14/20 SI:S/P SMALL INTESTINE ENDOSCOPY UPPER GI BLEED . ANEMIA . ACUTE ENCEPHALOPATHY 97.7 70 19 99/49 98% ON RA H/H 9.6/30.0 IS:IV PROTONIX BID \: 3E MED SURG UNIT DCP: HOME WHEN STABLE ; NO SNF PLACEMENT WANTED PLAN: POSSIBLE [facility] ENDOSCOPY
[2020-02-14 12:00] VITALS: BP 130/77
--- NOTE | 2020-02-14 12:21 | NUR ---
*-* INSURANCE *-* ALL AVAILABLE CLINICALS HAVE BEEN FAXED TO: [facility] P- [phone] F- [phone]....REVIEW/CLINICAL
[2020-02-14 15:25] LABS: BASOPHILS % (AUTO) 0.8 % (0.0-2.0); EOSINOPHILS % (AUTO) 0.7 % (0.0-3.0); HEMATOCRIT 31.6 % (37.0-47.0); HEMOGLOBIN 9.7 G/DL (12.0-16.0); LYMPHOCYTES % (AUTO) 23.8 % (20.0-45.0); MEAN CORPUSCULAR VOLUME 76 FL (80-99); MONOCYTES % (AUTO) 10.2 % (1.0-10.0); NEUTROPHILS % (AUTO) 64.5 % (45.0-75.0); PLATELET COUNT 360 K/UL (150-450); RED BLOOD COUNT 4.15 M/UL (4.20-5.40); RED CELL DISTRIBUTION WIDTH 17.4 % (11.6-14.8); WHITE BLOOD COUNT 7.2 K/UL (4.8-10.8)
[2020-02-14 16:00] VITALS: BP 111/56
--- NOTE | 2020-02-14 17:04 | NUR ---
NURSE NOTES: No BM noted during shift.
--- NOTE | 2020-02-14 19:30 | NUR ---
NURSE NOTES: RECEIVED PATIENT FROM MAGGIE SARAVIA. PATIENT IS ASLEEP, ON ROOM AIR, NO ACUTE DISTRESS NOTED. SCDS PRESENT. PORT CATH NOTED ON LEFT CHEST, COVERED WITH 4X4 GAUZE, CLEAN AND DRY. IV ON RIGHT HAND 20G INTACT AND PATENT. BED IS LOCKED AND LOW, BED ALARMS ACTIVE, SIDE RAILS UPX2, AND CALL LIGHT IS WITHIN REACH. WILL CONTINUE TO MONITOR.
--- NOTE | 2020-02-14 19:30 | NUR ---
HAND-OFF: Report given to Penelope RN. Patient is stable.
[2020-02-14 20:00] VITALS: BP 121/91
[2020-02-14 22:46] LABS: BASOPHILS % (AUTO) 0.8 % (0.0-2.0); EOSINOPHILS % (AUTO) 0.8 % (0.0-3.0); HEMATOCRIT 30.1 % (37.0-47.0); HEMOGLOBIN 9.1 G/DL (12.0-16.0); LYMPHOCYTES % (AUTO) 28.2 % (20.0-45.0); MEAN CORPUSCULAR VOLUME 76 FL (80-99); MONOCYTES % (AUTO) 10.7 % (1.0-10.0); NEUTROPHILS % (AUTO) 59.5 % (45.0-75.0); PLATELET COUNT 343 K/UL (150-450); RED BLOOD COUNT 3.96 M/UL (4.20-5.40); WHITE BLOOD COUNT 7.5 K/UL (4.8-10.8)
[2020-02-15] VITALS: BP 125/85
[2020-02-15 04:00] VITALS: BP 110/64
--- NOTE | 2020-02-15 07:24 | General Progress Note ---
Assessment/Plan Status: stable Assessment/Plan: 1. History of bowel obstruction requiring surgery. 2. Hypertension. 3. Dementia. 4. History of multiple intestinal AVM. 5. GIB 6. Anemia s/p enteroscopy stable H&H stool ob still pending fu H&H fu stool ob consider capsule endoscopy on Monday if still in house otherwise as out patient Subjective ROS Limited/Unobtainable: No Allergies: Coded Allergies: PENICILLINS (Verified Allergy, Unknown, 02/12/20) Objective Last 24 Hour Vital Signs Date Time Temp Pulse Resp B/P (MAP) Pulse Ox O2 Delivery O2 Flow Rate FiO2 02/15/20 04:00 98.4 79 20 110/64 (79) 96 02/15/20 00:00 98.7 81 18 125/85 (98) 96 02/14/20 21:00 Room Air 02/14/20 20:00 98.9 79 20 121/91 (101) 96 02/14/20 16:00 97.5 76 18 111/56 (74) 99 02/14/20 12:00 97.4 61 20 130/77 (94) 95 02/14/20 09:00 Room Air 02/14/20 08:00 97.7 124/74 (91) Intake and Output 02/14/20 02/15/20 19:00 07:00 Intake Total 240 ml 240 ml Output Total 400 ml Balance 240 ml -160 ml Intake Oral 240 ml 240 ml Output Urine Total 400 ml # Voids 2 3 Laboratory Tests 02/14/20 15:15: White Blood Count 7.2, Red Blood Count 4.15L, Hemoglobin 9.7L, Hematocrit 31.6L , Mean Corpuscular Volume 76L, Mean Corpuscular Hemoglobin 23.4L, Mean Corpuscular Hemoglobin Concent 30.8L, Red Cell Distribution Width 17.4H, Platelet Count 360, Mean Platelet Volume 7.2, Neutrophils (%) (Auto) 64.5, Lymphocytes (%) (Auto) 23.8, Monocytes (%) (Auto) 10.2H, Eosinophils (%) (Auto) 0.7, Basophils (%) (Auto) 0.8 02/14/20 22:40: White Blood Count 7.5, Red Blood Count 3.96L, Hemoglobin 9.1L, Hematocrit 30.1L , Mean Corpuscular Volume 76L, Mean Corpuscular Hemoglobin 22.9L, Mean Corpuscular Hemoglobin Concent 30.1L, Red Cell Distribution Width 18.0H, Platelet Count 343, Mean Platelet Volume 6.8, Neutrophils (%) (Auto) 59.5, Lymphocytes (%) (Auto) 28.2, Monocytes (%) (Auto) 10.7H, Eosinophils (%) (Auto) 0.8, Basophils (%) (Auto) 0.8 Height (Feet): 5 Height (Inches): 5.00 Weight (Pounds): 232 General Appearance: no apparent distress EENT: normal ENT inspection Neck: supple Cardiovascular: normal rate Respiratory/Chest: decreased breath sounds Abdomen: normal bowel sounds, non tender, soft Extremities: non-tender Eligio Andrade MD February 15, 2020 07:24
--- NOTE | 2020-02-15 07:47 | NUR ---
HAND-OFF: Report given to MAGGIE Patel. Patient is in stable condition.
--- NOTE | 2020-02-15 07:48 | NUR ---
NURSE NOTES: Received patient in bed asleep. No SOB or acute distress. IV line intact. For OB stool, specimen cup at bedside. HOB elevated. Bed locked in lowest position. Call light within reach. Will continue plan of care.
[2020-02-15 08:00] VITALS: BP 94/63
[2020-02-15] MEDS: Pantoprazole Inj IVP SCH ×2 (09:56→22:35)
--- NOTE | 2020-02-15 09:58 | General Progress Note ---
Assessment/Plan Problem List: (1) Encephalopathy acute ICD Codes: G93.40 - Encephalopathy, unspecified SNOMED: 84229021, 388250157 (2) Anemia ICD Codes: D64.9 - Anemia, unspecified SNOMED: 903125865 (3) Upper GI bleed ICD Codes: K92.2 - Gastrointestinal hemorrhage, unspecified SNOMED: 82483818 Status: stable Assessment/Plan: monitor for bleeding serial cbc PPI repeat stool ob possible capsule endoscopy monday d/ dtr- does not want snf Subjective ROS Limited/Unobtainable: Yes Constitutional: Reports: weakness HEENT: Reports: no symptoms Cardiovascular: Reports: no symptoms Respiratory: Reports: no symptoms Gastrointestinal/Abdominal: Reports: blood in stool Genitourinary: Reports: no symptoms Neurologic/Psychiatric: Reports: anxiety, emotional problems, pre-existing deficit Endocrine: Reports: no symptoms Hematologic/Lymphatic: Reports: anemia Allergies: Coded Allergies: PENICILLINS (Verified Allergy, Unknown, 02/12/20) All Systems: reviewed and negative except above Subjective no events. GI noted. no bleeding. very confused. still waiting for 2nd stool ob Objective Last 24 Hour Vital Signs Date Time Temp Pulse Resp B/P (MAP) Pulse Ox O2 Delivery O2 Flow Rate FiO2 02/15/20 08:00 97.9 60 19 94/63 (73) 96 02/15/20 04:00 98.4 79 20 110/64 (79) 96 02/15/20 00:00 98.7 81 18 125/85 (98) 96 02/14/20 21:00 Room Air 02/14/20 20:00 98.9 79 20 121/91 (101) 96 02/14/20 16:00 97.5 76 18 111/56 (74) 99 02/14/20 12:00 97.4 61 20 130/77 (94) 95 Intake and Output 02/14/20 02/15/20 19:00 07:00 Intake Total 240 ml 240 ml Output Total 400 ml Balance 240 ml -160 ml Intake Oral 240 ml 240 ml Output Urine Total 400 ml # Voids 2 3 Laboratory Tests 02/14/20 15:15: White Blood Count 7.2, Red Blood Count 4.15L, Hemoglobin 9.7L, Hematocrit 31.6L , Mean Corpuscular Volume 76L, Mean Corpuscular Hemoglobin 23.4L, Mean Corpuscular Hemoglobin Concent 30.8L, Red Cell Distribution Width 17.4H, Platelet Count 360, Mean Platelet Volume 7.2, Neutrophils (%) (Auto) 64.5, Lymphocytes (%) (Auto) 23.8, Monocytes (%) (Auto) 10.2H, Eosinophils (%) (Auto) 0.7, Basophils (%) (Auto) 0.8 02/14/20 22:40: White Blood Count 7.5, Red Blood Count 3.96L, Hemoglobin 9.1L, Hematocrit 30.1L , Mean Corpuscular Volume 76L, Mean Corpuscular Hemoglobin 22.9L, Mean Corpuscular Hemoglobin Concent 30.1L, Red Cell Distribution Width 18.0H, Platelet Count 343, Mean Platelet Volume 6.8, Neutrophils (%) (Auto) 59.5, Lymphocytes (%) (Auto) 28.2, Monocytes (%) (Auto) 10.7H, Eosinophils (%) (Auto) 0.8, Basophils (%) (Auto) 0.8 Height (Feet): 5 Height (Inches): 5.00 Weight (Pounds): 232 Objective General Appearance: WD/WN, alert, confused EENT: PERRL/EOMI, normal ENT inspection Neck: non-tender, normal alignment, supple Cardiovascular: normal peripheral pulses, normal rate, regular rhythm Respiratory/Chest: chest wall non-tender, lungs clear, normal breath sounds, no respiratory distress Abdomen: normal bowel sounds, non tender, soft, no organomegaly Edema: no edema noted Arm (L), no edema noted Arm (R), no edema noted Leg (L), no edema noted Leg (R), no edema noted Pedal (L), no edema noted Pedal (R), no edema noted Generalized Neurologic: alert, responsive, disoriented Lymphatic: normal anterior cervical (L), normal anterior cervical (R) Rob Garcia MD February 15, 2020 09:58
[2020-02-15 12:00] VITALS: BP 99/61
[2020-02-15] MEDS ORDERED: NS 500ML ONE (14:21)
[2020-02-15 15:51] VITALS: BP 112/60
--- NOTE | 2020-02-15 19:30 | NUR ---
HAND-OFF: Report given to Hedy SERRANO.
--- NOTE | 2020-02-15 19:35 | NUR ---
NURSE NOTES: Received report from MAGGIE Patel. Patient sleeping, easily awakened. No distress noted at this time. IV saline lock on RH, intact. External urine catheter in place. Given apple sauce and juice. Bed in low position, locked side rails up x2, call light within reach. Patient rooming close to nurses' station for closer observation. Will continue to monitor.
[2020-02-15 20:00] VITALS: BP 104/54
[2020-02-16] VITALS: BP 140/69
[2020-02-16 04:00] VITALS: BP 120/76
[2020-02-16 05:54] LABS: BASOPHILS % (AUTO) 0.9 % (0.0-2.0); EOSINOPHILS % (AUTO) 1.6 % (0.0-3.0); HEMATOCRIT 31.3 % (37.0-47.0); MEAN CORPUSCULAR VOLUME 73 FL (80-99); MONOCYTES % (AUTO) 11.1 % (1.0-10.0); NEUTROPHILS % (AUTO) 59.4 % (45.0-75.0); PLATELET COUNT 343 K/UL (150-450); RED CELL DISTRIBUTION WIDTH 15.7 % (11.6-14.8); WHITE BLOOD COUNT 6.3 K/UL (4.8-10.8)
[2020-02-16 06:06] LABS: ANION GAP 10 mmol/L (5-15); BLOOD UREA NITROGEN 11 mg/dL (7-18); CALCIUM 9.5 MG/DL (8.5-10.1); CARBON DIOXIDE 27 MMOL/L (21-32); CHLORIDE 104 MMOL/L (98-107); CREATININE 0.8 MG/DL (0.55-1.30); POTASSIUM 3.9 MMOL/L (3.5-5.1); SODIUM 141 MMOL/L (136-145)
--- NOTE | 2020-02-16 07:35 | NUR ---
HAND-OFF: Report given to MAGGIE Ramirez. Rounds done.
--- NOTE | 2020-02-16 07:55 | General Progress Note ---
Assessment/Plan Status: stable Assessment/Plan: 1. History of bowel obstruction requiring surgery. 2. Hypertension. 3. Dementia. 4. History of multiple intestinal AVM. 5. GIB 6. Anemia s/p enteroscopy stable H&H stool ob still pending fu H&H fu stool ob plan for capsule endoscopy on Monday if still in house otherwise as out patient Subjective ROS Limited/Unobtainable: No Allergies: Coded Allergies: PENICILLINS (Verified Allergy, Unknown, 02/12/20) Objective Last 24 Hour Vital Signs Date Time Temp Pulse Resp B/P (MAP) Pulse Ox O2 Delivery O2 Flow Rate FiO2 02/16/20 00:00 97.8 64 17 140/69 (92) 95 02/15/20 21:00 Room Air 02/15/20 20:00 97.4 60 18 104/54 (71) 100 02/15/20 15:51 98.1 64 19 112/60 (77) 96 02/15/20 12:00 97.6 66 19 99/61 (74) 96 02/15/20 09:00 Room Air 02/15/20 08:00 97.9 60 19 94/63 (73) 96 Intake and Output 02/15/20 02/16/20 19:00 07:00 Output Total 850 ml Balance -850 ml Output Urine Total 850 ml # Voids 1 # Bowel Movements 1 Laboratory Tests 02/15/20 18:30: Stool Occult Blood [Pending] 02/16/20 04:50: White Blood Count 6.3, Red Blood Count 4.30, Hemoglobin 10.0L, Hematocrit 31.3L , Mean Corpuscular Volume 73L, Mean Corpuscular Hemoglobin 23.2L, Mean Corpuscular Hemoglobin Concent 31.8L, Red Cell Distribution Width 15.7H, Platelet Count 343, Mean Platelet Volume 5.6L, Neutrophils (%) (Auto) 59.4, Lymphocytes (%) (Auto) 27.0, Monocytes (%) (Auto) 11.1H, Eosinophils (%) (Auto) 1.6, Basophils (%) (Auto) 0.9, Sodium Level 141, Potassium Level 3.9, Chloride Level 104, Carbon Dioxide Level 27, Anion Gap 10, Blood Urea Nitrogen 11, Creatinine 0.8, Estimat Glomerular Filtration Rate > 60, Glucose Level 93, Calcium Level 9.5 Height (Feet): 5 Height (Inches): 5.00 Weight (Pounds): 232 General Appearance: no apparent distress EENT: normal ENT inspection Neck: supple Cardiovascular: normal rate Respiratory/Chest: decreased breath sounds Abdomen: normal bowel sounds, non tender, soft Extremities: non-tender Eligio Andrade MD February 16, 2020 07:55
[2020-02-16 08:00] VITALS: BP 109/55
--- NOTE | 2020-02-16 08:00 | NUR ---
NURSE NOTES: Received report from Hedy SERRANO, pt a/a/o laying in bed with no signs of distress or other issues at this time. PermCath in the Left upper chest. IV on the right BOUDREAUX gauge #20. optifoam in place in the sacral area for preventive measures. per report pt is able to walk with assistance. call light within reach, bed in lowest position, side rales up x2. I will f/u as needed.
[2020-02-16] MEDS: Pantoprazole Inj IVP SCH ×2 (09:16→21:27)
--- NOTE | 2020-02-16 10:41 | General Progress Note ---
Assessment/Plan Problem List: (1) Encephalopathy acute ICD Codes: G93.40 - Encephalopathy, unspecified SNOMED: 59450524, 357098081 (2) Anemia ICD Codes: D64.9 - Anemia, unspecified SNOMED: 283887674 (3) Upper GI bleed ICD Codes: K92.2 - Gastrointestinal hemorrhage, unspecified SNOMED: 06246481 Status: stable Assessment/Plan: monitor for bleeding serial cbc PPI repeat stool ob d/w POC. possible capsule endoscopy monday d/w dtr- does not want snf Subjective ROS Limited/Unobtainable: No Constitutional: Reports: malaise, weakness HEENT: Reports: no symptoms Cardiovascular: Reports: no symptoms Respiratory: Reports: no symptoms Gastrointestinal/Abdominal: Reports: rectal bleeding Genitourinary: Reports: no symptoms Neurologic/Psychiatric: Reports: anxiety, emotional problems, pre-existing deficit Endocrine: Reports: no symptoms Hematologic/Lymphatic: Reports: anemia Allergies: Coded Allergies: PENICILLINS (Verified Allergy, Unknown, 02/12/20) All Systems: reviewed and negative except above Subjective no events. GI noted. no bleeding. very confused. still waiting for 2nd stool ob h/h stable. Objective Last 24 Hour Vital Signs Date Time Temp Pulse Resp B/P (MAP) Pulse Ox O2 Delivery O2 Flow Rate FiO2 02/16/20 08:00 98.0 60 20 109/55 (73) 96 02/16/20 04:00 97.3 62 16 120/76 (91) 97 02/16/20 00:00 97.8 64 17 140/69 (92) 95 02/15/20 21:00 Room Air 02/15/20 20:00 97.4 60 18 104/54 (71) 100 02/15/20 15:51 98.1 64 19 112/60 (77) 96 02/15/20 12:00 97.6 66 19 99/61 (74) 96 Intake and Output 02/15/20 02/16/20 19:00 07:00 Intake Total 240 ml Output Total 850 ml Balance -850 ml 240 ml Intake Oral 240 ml Output Urine Total 850 ml # Voids 1 2 # Bowel Movements 1 1 Laboratory Tests 02/15/20 18:30: Stool Occult Blood [Pending] 02/16/20 04:50: White Blood Count 6.3, Red Blood Count 4.30, Hemoglobin 10.0L, Hematocrit 31.3L , Mean Corpuscular Volume 73L, Mean Corpuscular Hemoglobin 23.2L, Mean Corpuscular Hemoglobin Concent 31.8L, Red Cell Distribution Width 15.7H, Platelet Count 343, Mean Platelet Volume 5.6L, Neutrophils (%) (Auto) 59.4, Lymphocytes (%) (Auto) 27.0, Monocytes (%) (Auto) 11.1H, Eosinophils (%) (Auto) 1.6, Basophils (%) (Auto) 0.9, Sodium Level 141, Potassium Level 3.9, Chloride Level 104, Carbon Dioxide Level 27, Anion Gap 10, Blood Urea Nitrogen 11, Creatinine 0.8, Estimat Glomerular Filtration Rate > 60, Glucose Level 93, Calcium Level 9.5 Height (Feet): 5 Height (Inches): 5.00 Weight (Pounds): 232 General Appearance: WD/WN, no apparent distress, alert, confused EENT: PERRL/EOMI, normal ENT inspection Neck: non-tender, normal alignment, supple Cardiovascular: normal peripheral pulses, normal rate, regular rhythm, no gallop/murmur Respiratory/Chest: chest wall non-tender, lungs clear, normal breath sounds, no respiratory distress, no accessory muscle use Abdomen: normal bowel sounds, non tender, soft, no organomegaly, no mass Edema: no edema noted Arm (L), no edema noted Arm (R), no edema noted Leg (L), no edema noted Leg (R), no edema noted Pedal (L), no edema noted Pedal (R), no edema noted Generalized Neurologic: head of store operations II-XII grossly normal, no motor/sensory deficits, alert, oriented x 3, responsive Skin: normal pigmentation Lymphatic: normal anterior cervical (L), normal anterior cervical (R) Objective General Appearance: WD/WN, alert, confused EENT: PERRL/EOMI, normal ENT inspection Neck: non-tender, normal alignment, supple Cardiovascular: normal peripheral pulses, normal rate, regular rhythm Respiratory/Chest: chest wall non-tender, lungs clear, normal breath sounds, no respiratory distress Abdomen: normal bowel sounds, non tender, soft, no organomegaly Edema: no edema noted Arm (L), no edema noted Arm (R), no edema noted Leg (L), no edema noted Leg (R), no edema noted Pedal (L), no edema noted Pedal (R), no edema noted Generalized Neurologic: alert, responsive, disoriented Lymphatic: normal anterior cervical (L), normal anterior cervical (R) Rob Garcia MD February 16, 2020 10:41
[2020-02-16 12:00] VITALS: BP 121/65
[2020-02-16 16:00] VITALS: BP 101/54
--- NOTE | 2020-02-16 19:26 | NUR ---
HAND-OFF: Report given to Kate SERRANO, pt in stable condition. - consent signed for tomorrow's procedure. pt's daughter Sonya is aware and agreed to the plan.
--- NOTE | 2020-02-16 19:27 | NUR ---
NURSE NOTES: Received report from Ashley SERRANO. Rounding is done. Patient is asleep. No distress noted at this time. IV site is intact and patient. Perma-cath on Lt chest is intact. Bed is on alarm, locked, and lowest position. Call light within reach. Will continue to monitor.
[2020-02-16 20:00] VITALS: BP 106/69
[2020-02-17] VITALS (9 sets, daily range): BP systolic 92–144; BP diastolic 53–103
[2020-02-17 07:22] LABS: BASOPHILS % (AUTO) 0.7 % (0.0-2.0); EOSINOPHILS % (AUTO) 1.3 % (0.0-3.0); HEMATOCRIT 32.4 % (37.0-47.0); HEMOGLOBIN 10.2 G/DL (12.0-16.0); LYMPHOCYTES % (AUTO) 28.6 % (20.0-45.0); MEAN CORPUSCULAR VOLUME 73 FL (80-99); NEUTROPHILS % (AUTO) 58.4 % (45.0-75.0); PLATELET COUNT 336 K/UL (150-450); RED BLOOD COUNT 4.44 M/UL (4.20-5.40); RED CELL DISTRIBUTION WIDTH 15.6 % (11.6-14.8); WHITE BLOOD COUNT 6.5 K/UL (4.8-10.8)
--- NOTE | 2020-02-17 08:06 | NUR ---
HAND-OFF: Report given to Inder SERRANO. Patient in stable condition.
[2020-02-17 08:07] LABS: ANION GAP 10 mmol/L (5-15); BLOOD UREA NITROGEN 9 mg/dL (7-18); CALCIUM 9.3 MG/DL (8.5-10.1); CARBON DIOXIDE 27 MMOL/L (21-32); CHLORIDE 105 MMOL/L (98-107); CREATININE 0.8 MG/DL (0.55-1.30); POTASSIUM 3.8 MMOL/L (3.5-5.1); SODIUM 142 MMOL/L (136-145)
[2020-02-17] MEDS: Pantoprazole Inj IVP SCH (09:00)
[2020-02-17] MEDS ORDERED: Lidocaine 1% MPF 10mg/ml 5ml ONE (09:30)
[2020-02-17] MEDS ORDERED: NS 500ML IVPB ONE (09:45)
--- NOTE | 2020-02-17 09:53 | Anethesia Preoperative Eval ---
Anesthesia Pre-op PMH/ROS General Date of Evaluation: February 17, 2020 Time of Evaluation: 09:20 Anesthesiologist: cathi ASA Score: ASA 4 Mallampati Score Class I : Soft palate, uvula, fauces, pillars visible Class II: Soft palate, uvula, fauces visible Class III: Soft palate, base of uvula visible Class IV: Only hard plate visible Mallampati Classification: Class III Surgeon: kade Diagnosis: gi bleed Surgical Procedure: egd w/ capsule place Anesthesia History: none Social History: smoking - unknown status Family History: no anesthesia problems Allergies: Coded Allergies: PENICILLINS (Verified Allergy, Unknown, 02/12/20) Medications: see eMAR Patient NPO?: Yes Past Medical History Cardiovascular: Reports: HTN Gastrointestinal/Genitourinary: Reports: GERD, other - peptic ulcer Neurologic/Psychiatric: Reports: dementia, other - muscle weakness Anesthesia Pre-op Phys. Exam Physician Exam Last Vital Signs Date Time Temp Pulse Resp B/P (MAP) Pulse Ox O2 Delivery O2 Flow Rate FiO2 02/17/20 04:00 97.6 77 18 121/82 (95) 97 02/16/20 21:00 Room Air 02/13/20 11:55 3 Constitutional: NAD Neurologic: other - muscle weakness Cardiovascular: RRR Respiratory: CTA Gastrointestinal: S/NT/ND Airway Exam Mallampati Score: Class II MO: limited Neck: flexible TMD: 2fb ROM: limited Teeth: missing Anesthesia Pre-op A/P Labs Hematology Test 02/17/20 07:00 White Blood Count 6.5 K/UL (4.8-10.8) Red Blood Count 4.44 M/UL (4.20-5.40) Hemoglobin 10.2 G/DL (12.0-16.0) L Hematocrit 32.4 % (37.0-47.0) L Mean Corpuscular Volume 73 FL (80-99) L Mean Corpuscular Hemoglobin 22.9 PG (27.0-31.0) L Mean Corpuscular Hemoglobin Concent 31.4 G/DL (32.0-36.0) L Red Cell Distribution Width 15.6 % (11.6-14.8) H Platelet Count 336 K/UL (150-450) Mean Platelet Volume 6.7 FL (6.5-10.1) Neutrophils (%) (Auto) 58.4 % (45.0-75.0) Lymphocytes (%) (Auto) 28.6 % (20.0-45.0) Monocytes (%) (Auto) 11.0 % (1.0-10.0) H Eosinophils (%) (Auto) 1.3 % (0.0-3.0) Basophils (%) (Auto) 0.7 % (0.0-2.0) Chemistry Test 02/17/20 07:00 Sodium Level 142 MMOL/L (136-145) Potassium Level 3.8 MMOL/L (3.5-5.1) Chloride Level 105 MMOL/L (98-107) Carbon Dioxide Level 27 MMOL/L (21-32) Anion Gap 10 mmol/L (5-15) Blood Urea Nitrogen 9 mg/dL (7-18) Creatinine 0.8 MG/DL (0.55-1.30) Estimat Glomerular Filtration Rate > 60 mL/min (>60) Glucose Level 92 MG/DL (74-106) Calcium Level 9.3 MG/DL (8.5-10.1) Risk Assessment & Plan Assessment: asa4 Plan: mac Status Change Before Surgery: No Pre-Antibiotics Drug: Yael Petit MD February 17, 2020 09:52
--- NOTE | 2020-02-17 09:56 | Pre-Procedure Note/Attestation ---
Pre-Procedure Note/Attestation Complete Prior to Procedure Planned Procedure: not applicable Procedure Narrative: esophagogastroduodenoscopy and capsule endoscopy Indications for Procedure Pre-Operative Diagnosis: gib Attestation I attest that I discussed the nature of the procedure; its benefits; risks and complications; and alternatives (and the risks and benefits of such alternatives ), prior to the procedure, with the patient (or the patient's legal rental sales representative). I attest that, if there was a reasonable possibility of needing a blood transfusion, the patient (or the patient's legal rental sales representative) was given the [facility] standardized written summary, pursuant to the [place] [employer] Blood Safety Act ([place] Health and Safety Code # 1645, as amended). I attest that I re-evaluated the patient just prior to the surgery and that there has been no change in the patient's H&P, except as documented below: Eligio Andrade MD February 17, 2020 09:56
[2020-02-17] MEDS ORDERED: Midazolam 2mg/2ml Inj IVP PRN (10:00)
[2020-02-17] MEDS ORDERED: fentaNYL 100 mcg/2 mL IV PRN (10:00)
[2020-02-17] MEDS ORDERED: Atropine Inj 1mg/10ml Syr IV PRN (10:00)
[2020-02-17] MEDS ORDERED: DiphenhydrAMINE 50mg/ml Inj IVP PRN (10:00)
--- NOTE | 2020-02-17 10:13 | NUR ---
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 CURRENT DIET: NPO for EGD PO DIET RECOMMENDATIONS: advance as per MD, add Ensure Clear to diet ADDITIONAL RECOMMENDATIONS: 1) Obtain an accurate bed scale wt Pt w/ variable bed weights 2) Monitor tolerance to diet and texture Consider PERSONAL PROPERTY APPRAISER eval for appropriate texture 3) rec D5 should pt remain NPO
--- NOTE | 2020-02-17 10:18 | Endoscopy Procedure Note ---
Endoscopy Procedure Note General Indication for Procedure: gib Procedures Performed: EGD Operative Findings/Diagnosis: same Specimen: none Pt Tolerated Procedure Well: Yes Estimated Blood Loss: none Anesthesia Anesthesiologist: luann Anesthesia: MAC Inserted Devices Implant(s) used?: No GI Core Measures 50 yrs or older w/o bx or poly: Not Applicable 10yrs. F/U recommended: Not Applicable Eligio Andrade MD February 17, 2020 10:18
--- NOTE | 2020-02-17 10:37 | General Progress Note ---
Assessment/Plan Problem List: (1) Encephalopathy acute ICD Codes: G93.40 - Encephalopathy, unspecified SNOMED: 80450011, 227037897 (2) Anemia ICD Codes: D64.9 - Anemia, unspecified SNOMED: 195743035 (3) Upper GI bleed ICD Codes: K92.2 - Gastrointestinal hemorrhage, unspecified SNOMED: 98569199 Status: stable Assessment/Plan: monitor for bleeding serial cbc PPI repeat stool ob d/w POC. possible capsule endoscopy today d/w dtr- does not want snf Subjective ROS Limited/Unobtainable: No Constitutional: Reports: malaise, weakness HEENT: Reports: no symptoms Cardiovascular: Reports: no symptoms Respiratory: Reports: cough, shortness of breath Gastrointestinal/Abdominal: Reports: no symptoms Genitourinary: Reports: no symptoms Neurologic/Psychiatric: Reports: depressed Endocrine: Reports: no symptoms Hematologic/Lymphatic: Reports: anemia Allergies: Coded Allergies: PENICILLINS (Verified Allergy, Unknown, 02/12/20) All Systems: reviewed and negative except above Subjective no events. GI noted. no bleeding. very confused. still waiting for 2nd stool ob h/h stable. npo for capsule study Objective Last 24 Hour Vital Signs Date Time Temp Pulse Resp B/P (MAP) Pulse Ox O2 Delivery O2 Flow Rate FiO2 02/17/20 04:00 97.6 77 18 121/82 (95) 97 02/17/20 00:00 97.8 67 18 108/67 (81) 99 02/16/20 21:00 Room Air 02/16/20 20:00 98.1 64 16 106/69 (81) 95 02/16/20 16:00 97.5 64 19 101/54 (70) 96 02/16/20 12:00 98.2 72 20 121/65 (83) 96 Intake and Output 02/16/20 02/17/20 19:00 07:00 Output Total 600 ml Balance -600 ml Output Urine Total 600 ml # Voids 2 # Bowel Movements 1 Laboratory Tests 02/17/20 07:00: White Blood Count 6.5, Red Blood Count 4.44, Hemoglobin 10.2L, Hematocrit 32.4L , Mean Corpuscular Volume 73L, Mean Corpuscular Hemoglobin 22.9L, Mean Corpuscular Hemoglobin Concent 31.4L, Red Cell Distribution Width 15.6H, Platelet Count 336, Mean Platelet Volume 6.7, Neutrophils (%) (Auto) 58.4, Lymphocytes (%) (Auto) 28.6, Monocytes (%) (Auto) 11.0H, Eosinophils (%) (Auto) 1.3, Basophils (%) (Auto) 0.7, Sodium Level 142, Potassium Level 3.8, Chloride Level 105, Carbon Dioxide Level 27, Anion Gap 10, Blood Urea Nitrogen 9, Creatinine 0.8, Estimat Glomerular Filtration Rate > 60, Glucose Level 92, Calcium Level 9.3 Height (Feet): 5 Height (Inches): 5.00 Weight (Pounds): 95 Objective General Appearance: WD/WN, alert, confused EENT: PERRL/EOMI, normal ENT inspection Neck: non-tender, normal alignment, supple Cardiovascular: normal peripheral pulses, normal rate, regular rhythm Respiratory/Chest: chest wall non-tender, lungs clear, normal breath sounds, no respiratory distress Abdomen: normal bowel sounds, non tender, soft, no organomegaly Edema: no edema noted Arm (L), no edema noted Arm (R), no edema noted Leg (L), no edema noted Leg (R), no edema noted Pedal (L), no edema noted Pedal (R), no edema noted Generalized Neurologic: alert, responsive, disoriented Lymphatic: normal anterior cervical (L), normal anterior cervical (R) Rob Garcia MD February 17, 2020 10:37
--- NOTE | 2020-02-17 11:13 | Immediate Post-Op Evaluation ---
Immediate Post-Op Evalulation Immediate Post-Op Evalulation Procedure: egd w/capsule place Date of Evaluation: February 17, 2020 Time of Evaluation: 10:36 IV Fluids: 100ml 0.9ns Blood Products: none Estimated Blood Loss: negligible Blood Pressure Systolic: 96 Blood Pressure Diastolic: 65 Pulse Rate: 95 Respiratory Rate: 18 O2 Sat by Pulse Oximetry: 98 Temperature (Fahrenheit): 97.5 Pain Score (1-10): 0 Nausea: No Vomiting: No Complications none Patient Status: awake, reacts, patent Hydration Status: adequate Drug: Yael Petit MD February 17, 2020 11:13
--- NOTE | 2020-02-17 11:15 | 48 Hour Post Anesthesia Eval ---
Post Anesthesia Evaluation Procedure: egd w/capsule place Date of Evaluation: February 17, 2020 Time of Evaluation: 10:38 Blood Pressure Systolic: 105 0: 72 Pulse Rate: 74 Respiratory Rate: 18 Temperature (Fahrenheit): 97.5 O2 Sat by Pulse Oximetry: 98 Airway: patent Nausea: No Vomiting: No Pain Intensity: 0 Hydration Status: adequate Cardiopulmonary Status: stable Mental Status/LOC: patient returned to baseline Post-Anesthesia Complications: none Follow-up care needed: N/A Yael Lehman MD February 17, 2020 11:15
--- NOTE | 2020-02-17 11:55 | NUR ---
*-* INSURANCE *-* UPDATED CLINICALS HAVE BEEN FAXED TO: [place] [facility] P- [phone] F- [phone]....REVIEW/CLINICAL
--- NOTE | 2020-02-17 16:10 | NUR ---
NURSE NOTES:DR. JIMÉNEZ NOTIFIED RE:SKIN TEAR ON LEFT ARM,CONSULTED WITH DR. TONY.SEEN AND TX INITIATED BY PATTI(WOUND NURSE)WITH VERSATEL,SILVASORB GEL,TELFA AND KERLIX ROLL.PICTURE DONE.
--- NOTE | 2020-02-17 16:50 | NUR ---
NURSE NOTES:WOUND CARE NOTES:Pt L forearm erythematous with several small serous blisters L forearm. Skin temp is slightly warm to touch. One open blister noted to ventral L forearm. Pt denied pain at site.Site cleansed with Saline. Versatel One Contact Layer applied. Silvasorb gel applied .Covered with non-adherent drsg and wrapped loosely with Kerlix. Tx.Plan:One time Application of Versatel Contact Layer. Cleanse L forearm with Saline. Apply Silvasorb gel. Cover with Abd. pad and Wrap loosely with Kerlix. Changee very 7 days and prn. Do not remove Versatel Contact layer with next scheduled Tx.
--- NOTE | 2020-02-17 19:42 | NUR ---
HAND-OFF: Report given to Kate/MAGGIE, pt in stable condition, electric binder was taken off and is sitting at charge nurse station to be collected.
--- NOTE | 2020-02-17 19:43 | NUR ---
NURSE NOTES: Received report from Inder RN. Rounding is done. Patient is asleep. No distress noted at this time. IV site is intact and patient. Perma-cath on Lt chest is intact. Optifaom on Sacrum, heel both, knee both for protection. Patient has blister on Lt FA and Dr. hannon and Dr. jaramillo, and [facility] wound nurse is already aware. Inder took a pickture. Dressing on Lt FA is c/d/i. Waist belt in medication room. Given Clean and perineal care and changed the bed. Bed is on alarm, locked, and lowest position. Call light within reach. Will continue to monitor.
--- NOTE | 2020-02-17 19:59 | Procedure Note ---
DATE OF PROCEDURE: 02/17/2020 SURGEON: Eligio Andrade MD. PROCEDURE: Upper endoscopy with capsule endoscopy placement. ANESTHESIA: Per Dr. Johnson. INSTRUMENT: Olympus adult flexible upper endoscope. INDICATION: GI bleeding. The procedure, risks, benefits, and possible consequences, including hemorrhage, aspiration, perforation and infection, and alternative treatments, were explained to the patient/legal guardian by Dr. Eligio Andrade and the patient/legal guardian understood and accepted these risks. DESCRIPTION OF PROCEDURE: After informed consent was obtained and the patient was adequately sedated, first using a Enrique net, we put a capsule in it. We placed the scope with the Enrique net into the stomach and second portion of the duodenum. We released the basket, but the Enrique net would not let it go. We had to pull that back into the stomach and then at that point, we were able to get it off of the Enrique net. Then, we used a rat-tooth alligator to grab the capsule and placed it in the duodenum. The patient tolerated the procedure very well without any complication. SUMMARY OF FINDINGS: Status post endoscopic-assisted capsule placement in the duodenum. RECOMMENDATIONS: The patient to be started on clear-liquid diet later today. We will follow up on the capsule study results. Monitor hemoglobin and hematocrit. Transfuse as needed. I want to thank, Dr. Rob Garcia, for this kind referral. Eligio Andrade M.D. DR: NGOZI JOB#: [id number] CC: Rob Garcia M.D.
[2020-02-18] VITALS: BP 110/65
[2020-02-18 04:00] VITALS: BP 116/70
--- NOTE | 2020-02-18 07:04 | NUR ---
HAND-OFF: Report given to Inder SERRANO. Patient in stable condition.
--- NOTE | 2020-02-18 07:08 | NUR ---
NURSE NOTES: pt in bed, food tray at bedside. Bed in lowest position and locked, call light within reach, side rails up x2 for safety. Pt is not showing any signs of cardiac or respiratory distress at this time. Pt is not complaining of pain.
[2020-02-18 08:23] VITALS: BP 96/56
[2020-02-18 12:00] VITALS: BP 107/71
--- NOTE | 2020-02-18 12:04 | NUR ---
*-* INSURANCE *-* UPDATED CLINICALS HAVE BEEN FAXED TO: [place] [facility] P- [phone] F- [phone]....REVIEW/CLINICAL
--- NOTE | 2020-02-18 13:16 | Consultation ---
History of Present Illness General Date patient seen: February 18, 2020 Chief Complaint: Generalized Weakness Present Illness HPI Patient is a 79-year-old female past medical history of AVM with recurrent bleeds and dementia who was brought into the emergency room by her daughter from her oncologist office for anemia. Her daughter patient has intestinal bleeding and went to see her oncologist and bulldozer engineer who told her that her mother was anemic and needed a blood transfusion. History is limited due to the fact that the patient is demented. Admitted further care management. On admission identified to have severe malnutrition, failure to thrive, anemia, status post scope by GI without active bleeding finding, skin ulcers, abnormal labs. Surgery called to evaluate and assist with care. Patient seen, patient evaluated, chart reviewed Allergies: Coded Allergies: PENICILLINS (Verified Allergy, Unknown, 02/12/20) Medication History Scheduled Aspirin* (Aspirin*), 81 MG ORAL DAILY, (Reported) Enalapril Maleate* (Enalapril Maleate*), 5 MG ORAL DAILY, (Reported) Linaclotide (Linzess), 145 MCG PO DAILY, (Reported) Pantoprazole* (Pantoprazole*), 40 MG ORAL DAILY, (Reported) Patient History Limited by: age, medical condition History Provided By: Medical Record, PMD Healthcare decision maker Resuscitation status Advanced Directive on File No Past Medical/Surgical History Past Medical/Surgical History: (1) Anemia (2) Encephalopathy acute (3) Upper GI bleed Review of Systems All Other Systems: negative except mentioned in HPI ROS Narrative limited given mental status Physical Exam General Appearance: no apparent distress, alert Lines, tubes and drains: peripheral HEENT: atraumatic, anicteric, mucous membranes moist Neck: supple, normal inspection Respiratory/Chest: normal breath sounds, no respiratory distress, no accessory muscle use, decreased breath sounds Cardiovascular/Chest: normal rate, regular rhythm Abdomen: normal bowel sounds, soft, no organomegaly, abnormal bowel sounds Genitourinary/Rectal: normal rectal exam Extremities: normal range of motion, non-tender, normal inspection Neurologic: alert, disoriented Last 24 Hour Vital Signs Date Time Temp Pulse Resp B/P (MAP) Pulse Ox O2 Delivery O2 Flow Rate FiO2 02/18/20 12:00 98.6 66 21 107/71 (83) 97 02/18/20 09:00 Room Air 02/18/20 08:23 97.1 71 18 96/56 (69) 98 02/18/20 04:00 98.2 78 17 116/70 (85) 92 02/18/20 00:00 98.4 81 18 110/65 (80) 92 02/17/20 21:00 Room Air 02/17/20 20:00 98.2 75 18 141/103 (116) 91 02/17/20 16:00 97.0 61 20 104/77 (86) 100 Intake and Output 02/17/20 02/18/20 19:00 07:00 Intake Total 450 ml Balance 450 ml Intake Oral 300 ml IV Total 150 ml # Voids 1 2 # Bowel Movements 1 Height (Feet): 5 Height (Inches): 5.00 Weight (Pounds): 95 Medications Current Medications Medications (Trade) Dose Ordered Sig/Jody Route PRN Reason Start Time Stop Time Status Last Admin Dose Admin Acetaminophen (Tylenol) 500 mg Q4H PRN ORAL Mild Pain (Pain Scale 1-3) 02/12/20 13:00 03/13/20 12:59 Ondansetron HCl (Zofran) 4 mg Q6H PRN IVP Nausea & Vomiting 02/12/20 13:00 03/13/20 12:59 Pantoprazole (Protonix) 40 mg EVERY 12 HOURS ORAL 02/17/20 21:00 03/18/20 20:59 02/18/20 09:43 Assessment/Plan Problem List: (1) Upper GI bleed ICD Codes: K92.2 - Gastrointestinal hemorrhage, unspecified SNOMED: 02457920 (2) Anemia Assessment & Plan: s/p endoscopy without active finding h/h stable discussed with GI recommend capsule scope eval can be done outpatient as well okay for diet no acute surgical intervention planned given stable and without active bleeding currently thank you ICD Codes: D64.9 - Anemia, unspecified SNOMED: 194961759 (3) Encephalopathy acute ICD Codes: G93.40 - Encephalopathy, unspecified SNOMED: 24031473, 049477893 (4) Edema of upper extremity Assessment & Plan: Pt L forearm erythematous with several small serous blisters L forearm. Skin temp is slightly warm to touch. One open blister noted to ventral L forearm. Pt denied pain at site.Site cleansed with Saline. Versatel One Contact Layer applied. Silvasorb gel applied .Covered with non- adherent drsg and wrapped loosely with Kerlix. Tx.Plan: One time Application of Versatel Contact Layer. Cleanse L forearm with Saline. Apply Silvasorb gel. Cover with Abd. pad and Wrap loosely with Kerlix. Changee very 7 days and prn. Do not remove Versatel Contact layer with next scheduled Tx. ICD Codes: R60.0 - Localized edema SNOMED: 940145362 Juan Daniel Rodriguez February 18, 2020 13:16
[2020-02-18 16:00] VITALS: BP 105/60
--- NOTE | 2020-02-18 18:45 | NUR ---
NURSE NOTES: pt left in stable condition via private vehicle. IV was DC and covered with a 4x4. ID bracelet was taken off. Gave family members DC papework, and gave DC instructions. Family verbalized understanding and they will follow up with doctor Gibson. they will make follow up appt with primary physician within 1 wk of DC. Also they will care for pt's wound on left arm. They were educated on when to change dressing, which is in 6 days from now. They will continue home medications per doct instructions.
--- NOTE | 2020-02-18 21:16 | General Progress Note ---
Assessment/Plan Status: stable Assessment/Plan: Assessment 1. History of bowel obstruction requiring surgery. 2. Hypertension. 3. Dementia. 4. History of multiple intestinal AVM. 5. GIB 6. Anemia Recommendations - push PO - follow up results of capsule endo - d/c planning - outpatient f/u Subjective Allergies: Coded Allergies: PENICILLINS (Verified Allergy, Unknown, 02/12/20) Subjective Above noted NAD s/p endoscopic wireless capsule Objective Last 24 Hour Vital Signs Date Time Temp Pulse Resp B/P (MAP) Pulse Ox O2 Delivery O2 Flow Rate FiO2 02/18/20 16:00 97.9 77 18 105/60 (75) 97 02/18/20 12:00 98.6 66 21 107/71 (83) 97 02/18/20 09:00 Room Air 02/18/20 08:23 97.1 71 18 96/56 (69) 98 02/18/20 04:00 98.2 78 17 116/70 (85) 92 02/18/20 00:00 98.4 81 18 110/65 (80) 92 Intake and Output 02/17/20 02/18/20 19:00 07:00 Intake Total 450 ml Balance 450 ml Intake Oral 300 ml IV Total 150 ml # Voids 1 2 # Bowel Movements 1 Height (Feet): 5 Height (Inches): 5.00 Weight (Pounds): 95 Objective Elderly woman NCAT supple CTA RRR abd soft ND NT no edema OBS Beau Berger MD February 18, 2020 21:16
--- NOTE | 2020-02-19 03:59 | Discharge Summary ---
DATE OF ADMISSION: 02/12/2020 DATE OF DISCHARGE: 02/18/2020 ADMISSION DIAGNOSES: 1. Anemia. 2. GI bleed. 3. Hypertension. 4. Dementia. DISCHARGE DIAGNOSES: 1. Anemia. 2. GI bleed. 3. Hypertension. 4. Dementia. HOSPITAL COURSE: Patient was admitted with complaints of GI bleed and anemia. She had prior endoscopies that were significant for diverticular bleeding and bleeding from AVM. She was admitted. She was transfused 2 units of packed red blood cells. She had no further signs or symptoms of bleeding, but she did undergo a capsule endoscopy. There was no obvious source of bleeding noted. Capsule endoscopy results were still pending, but patient clinically was stable with a normal hemoglobin and without signs of bleeding. She will be discharged home and follow up with her utilization review nurse for follow up of the capsule endoscopy studies. DISCHARGE MEDICATIONS: Please see discharge medication list for discharge medications. DIET: Regular diet. ACTIVITIES: Ad catherine. Rob Garcia M.D. DR: KRISTINE JOB#: [id number] CC:
--- NOTE | 2020-02-19 11:36 | NUR ---
*-* INSURANCE *-* UPDATED CLINICALS AND DISCHARGE SUMMARY HAVE BEEN FAXED TO: [facility] P- [phone] [phone]....REVIEW/CLINICAL
== END 2020-02-18 18:05 | disposition home or self-care (01) | DRG 253 ==
LOC: EMR 09:50 → 3E 10:30 → EDBEDREQ 11:29 → 3E 02-13 16:41
PROC: 30233N1 Transfusion of Nonautologous Red Blood Cells into Peripheral Vein, Percutaneous Approach (ICD-10-PCS; 2020-02-12)
PROC: 0DJ08ZZ Inspection of Upper Intestinal Tract, Via Natural or Artificial Opening Endoscopic (ICD-10-PCS; principal; 2020-02-13 11:25)
PROC: 0DJ08ZZ Inspection of Upper Intestinal Tract, Via Natural or Artificial Opening Endoscopic (ICD-10-PCS; 2020-02-17)
DX: K31.811 Angiodysplasia of stomach and duodenum with bleeding (principal); Z88.0 Allergy status to penicillin; G93.40 Encephalopathy, unspecified; D64.9 Anemia, unspecified; F03.90 Unspecified dementia, unspecified severity, without behavioral disturbance, psychotic disturbance, mood disturbance, and anxiety
CPT/HCPCS: 36415; 80048; 80053; 82270; 83690; 83735; 85025; 85610; 85730; 86850; 86900; 86901; 86920; 94003; 94150; 96365; 96366; 96375; 99291

== ENCOUNTER 2020-03-03 08:20 | Outpatient (CLI) | payer MEDICARE, MEDICAID ==
[~2020-03-03 08:20] MED LIST changes: +ASPIRIN81 MG ORAL; +LINZESS145 MCG PO
[2020-03-03 08:45] VITALS: BP 150/55
--- NOTE | 2020-03-09 14:53 | General Progress Note ---
Assessment/Plan Assessment/Plan: GIB s/p capsule enoscopy on IV iron by hematology needs close H&H check RTC one month Subjective ROS Limited/Unobtainable: No Allergies: Coded Allergies: PENICILLINS (Verified Allergy, Unknown, 02/12/20) Objective General Appearance: alert EENT: normal ENT inspection Neck: supple Cardiovascular: normal rate Respiratory/Chest: decreased breath sounds Abdomen: normal bowel sounds, non tender, soft Extremities: non-tender Eligio Andrade MD Mar 09, 2020 14:53
== END 2020-03-03 10:20 | disposition home or self-care (01) ==
LOC: PAN 08:20
DX: K92.2 Gastrointestinal hemorrhage, unspecified (principal); Z88.0 Allergy status to penicillin
CPT/HCPCS: 99212

== ENCOUNTER 2020-07-22 09:11 | Emergency (ER) | payer MEDICARE, OTHER ==
[~2020-07-22] VITALS: Ht 162.6 cm; Wt 40.8 kg
--- NOTE | 2020-07-22 09:40 | NUR ---
ED Nurse Note: WAI- (DAUGHTER)-
--- NOTE | 2020-07-22 09:47 | Emergency Room Report ---
History of Present Illness General Chief Complaint: Dizziness Source: Family Member Present Illness HPI Disclaimer: Please note that this report is being documented using [employer] technology. This can lead to erroneous entry secondary to incorrect interpretation by the dictating instrument. HPI: 79-year-old female history of dementia and GI bleed presents for evaluation of diarrhea. Sent in by PMD however concern of 3 days diarrhea which may cause dehydration. Patient has severe dementia and cannot provide any history though daughter who is her primary gaming pit boss is present. She reports voluminous watery nonbloody diarrhea. Her stools are always dark in color due to iron supplementation. She gets regular transfusions for anemia. Daughter denies fevers, vomiting, signs of distress otherwise. PMH: GI bleed, dementia PSH: Endoscopies, colonoscopies Allergies: Penicillin Social Hx: Reviewed Allergies: Coded Allergies: PENICILLINS (Verified Allergy, Unknown, 02/12/20) COVID-19 Screening Contact w/high risk pt: No Recent Travel to affected area: No Experienced COVID-19 symptoms?: No COVID-19 Testing performed [employer] SALES [employer] SERVICE MANAGER: No Patient History Last Menstrual Period: na Nursing Documentation-PMH Past Medical History: No History, Except For Hx Cardiac Problems: Yes Hx Hypertension: Yes Hx Cancer: No Hx Gastrointestinal Problems: Yes History Of Psychiatric Problem: Yes - dementia Hx Neurological Problems: Yes Hx Dementia: Yes Hx Weakness: Yes Review of Systems All Other Systems: negative except mentioned in HPI Physical Exam Vital Signs Date Time Temp Pulse Resp B/P (MAP) Pulse Ox O2 Delivery O2 Flow Rate FiO2 07/22/20 09:36 98.2 82 12 129/73 (91) 100 Room Air General: Awake, not responding verbally, no acute distress HEENT: NC/AT. EOMI. Chest Wall: Port in left upper chest. Cardiovascular: RRR. S1 and S2 normal. No murmur appreciated Resp: Normal work of breathing. No cough, wheezing or crackles appreciated Abdomen: Abdomen is soft, nondistended. Nontender Skin: Intact. No abrasions, laceration or rash over the exposed skin MSK: Normal tone and bulk. Moving all extremities. No obvious deformity. Neuro: Awake, no verbal response. Severe dementia Medical Decision Making Diagnostic Impression: Primary Impression: GI bleed Additional Impression: Diarrhea ER Course Is a 79-year-old female presenting for evaluation of diarrhea. Differential includes but not limited to GI bleed, gastritis, gastroenteritis, inflammatory bowel disease, anemia, dehydration, electrolyte abnormality, renal failure to name a few. She arrives with stable vital signs does not appear to be any acute distress. Labs obtained showing stable hemoglobin 9.6 largely unchanged from previous visit. Chemistry largely unremarkable. Troponin negative. Coagulation studies within normal limits. Discussed with the patient's general labor who initially sent the patient in because she was hypotensive and is waiting room. Given this and the positive FOBT finding will readmit for GI bleed. She was recently admitted for similar. Patient to be transferred to [facility]. Stable condition. Laboratory Tests Test 07/22/20 09:50 07/22/20 10:20 White Blood Count 5.5 K/UL (4.8-10.8) Red Blood Count 4.08 M/UL (4.20-5.40) L Hemoglobin 9.6 G/DL (12.0-16.0) L Hematocrit 31.5 % (37.0-47.0) L Mean Corpuscular Volume 77 FL (80-99) L Mean Corpuscular Hemoglobin 23.4 PG (27.0-31.0) L Mean Corpuscular Hemoglobin Concent 30.4 G/DL (32.0-36.0) L Red Cell Distribution Width 15.1 % (11.6-14.8) H Platelet Count 240 K/UL (150-450) Mean Platelet Volume 8.3 FL (6.5-10.1) Neutrophils (%) (Auto) 59.6 % (45.0-75.0) Lymphocytes (%) (Auto) 30.3 % (20.0-45.0) Monocytes (%) (Auto) 8.3 % (1.0-10.0) Eosinophils (%) (Auto) 0.6 % (0.0-3.0) Basophils (%) (Auto) 1.2 % (0.0-2.0) Prothrombin Time 11.5 SEC (9.30-11.50) Prothrombin Time INR 1.0 (0.9-1.1) Activated Partial Thromboplast Time 25 SEC (23-33) Sodium Level 142 MMOL/L (136-145) Potassium Level 3.8 MMOL/L (3.5-5.1) Chloride Level 108 MMOL/L (98-107) H Carbon Dioxide Level 25 MMOL/L (21-32) Anion Gap 9 mmol/L (5-15) Blood Urea Nitrogen 4 mg/dL (7-18) L Creatinine 0.7 MG/DL (0.55-1.30) Estimated Glomerular Filtration Rate > 60 mL/min (>60) Glucose Level 96 MG/DL (74-106) Calcium Level 8.8 MG/DL (8.5-10.1) Total Bilirubin 0.1 MG/DL (0.2-1.0) L Aspartate Amino Transferase (AST) 35 U/L (15-37) Alanine Aminotransferase (ALT) 25 U/L (12-78) Alkaline Phosphatase 60 U/L (46-116) Troponin I 0.005 ng/mL (0.000-0.056) Total Protein 6.5 G/DL (6.4-8.2) Albumin 3.7 G/DL (3.4-5.0) Globulin 2.8 g/dL Albumin/Globulin Ratio 1.3 (1.0-2.7) Lipase 98 U/L (73-393) Urine Color Pale yellow Urine Appearance Slightly cloudy Urine pH 6.5 (4.5-8.0) Urine Specific [place] 1.010 (1.005-1.035) Urine Protein Negative (NEGATIVE) Urine Glucose (UA) Negative (NEGATIVE) Urine Ketones Negative (NEGATIVE) Urine Blood 1+ (NEGATIVE) H Urine Nitrite Negative (NEGATIVE) Urine Bilirubin Negative (NEGATIVE) Urine Urobilinogen Normal MG/DL (0.0-1.0) Urine Leukocyte Esterase 2+ (NEGATIVE) H Urine RBC 0-2 /HPF (0 - 2) Urine WBC 2-4 /HPF (0 - 2) Urine Squamous Epithelial Cells None /LPF (NONE/OCC) Urine Bacteria Moderate /HPF (NONE) H Last Vital Signs Date Time Temp Pulse Resp B/P (MAP) Pulse Ox O2 Delivery O2 Flow Rate FiO2 07/22/20 09:36 98.2 82 12 129/73 (91) 100 Room Air Disposition: SHORT-TERM HOSP Condition: Stable Rudi Acosta MD Jul 22, 2020 09:47
[2020-07-22 10:00] VITALS: BP 122/79
--- NOTE | 2020-07-22 10:00 | NUR ---
ED Nurse Note: Pt sent in from Dr. Winkler's office for weakness, diarrhea, and possible GI bleed. Hx of dementia. A+Ox1. Pt does not follow commands. Respirations even and unlabored on room air. Vitals stable as documented.
--- NOTE | 2020-07-22 10:27 | NUR ---
ED Nurse Note: urine sent to lab
[2020-07-22 10:37] LABS: BASOPHILS % (AUTO) 1.2 % (0.0-2.0); EOSINOPHILS % (AUTO) 0.6 % (0.0-3.0); HEMATOCRIT 31.5 % (37.0-47.0); HEMOGLOBIN 9.6 G/DL (12.0-16.0); LYMPHOCYTES % (AUTO) 30.3 % (20.0-45.0); MEAN CORPUSCULAR VOLUME 77 FL (80-99); MONOCYTES % (AUTO) 8.3 % (1.0-10.0); NEUTROPHILS % (AUTO) 59.6 % (45.0-75.0); PLATELET COUNT 240 K/UL (150-450); RED BLOOD COUNT 4.08 M/UL (4.20-5.40); RED CELL DISTRIBUTION WIDTH 15.1 % (11.6-14.8); WHITE BLOOD COUNT 5.5 K/UL (4.8-10.8)
[2020-07-22 10:41] LABS: ANION GAP 9 mmol/L (5-15); BLOOD UREA NITROGEN 4 mg/dL (7-18); CALCIUM 8.8 MG/DL (8.5-10.1); CARBON DIOXIDE 25 MMOL/L (21-32); CHLORIDE 108 MMOL/L (98-107); CREATININE 0.7 MG/DL (0.55-1.30); POTASSIUM 3.8 MMOL/L (3.5-5.1); SODIUM 142 MMOL/L (136-145)
[2020-07-22 10:44] LABS: ALANINE AMINOTRANSFERASE 25 U/L (12-78); ALBUMIN 3.7 G/DL (3.4-5.0); ALBUMIN/GLOBULIN RATIO 1.3 (1.0-2.7); ALKALINE PHOSPHATASE 60 U/L (46-116); ASPARTATE AMINO TRANSFERASE 35 U/L (15-37); BILIRUBIN,TOTAL 0.1 MG/DL (0.2-1.0)
[2020-07-22 10:46] LABS: APPEARANCE,URINE SLIGHTLY CLOUDY; BILIRUBIN, URINE NEGATIVE (NEGATIVE); COLOR,URINE PALE YELLOW; GLUCOSE, URINE (UA) NEGATIVE (NEGATIVE); KETONES,URINE NEGATIVE (NEGATIVE); LEUKOCYTE ESTERASE ,URINE 2+ (NEGATIVE); NITRITE,URINE NEGATIVE (NEGATIVE); PH,URINE 6.5 (4.5-8.0); PROTEIN,URINE NEGATIVE (NEGATIVE); UROBILINOGEN,URINE NORMAL MG/DL (0.0-1.0)
[2020-07-22 12:00] VITALS: BP 131/74
[2020-07-22 14:16] VITALS: BP 130/58
--- NOTE | 2020-07-22 15:53 | NUR ---
ED Nurse Note: Report given to Elijah SERRANO from [facility].
[2020-07-22 16:10] VITALS: BP 122/71
[2020-07-22 16:47] VITALS: BP 122/71
--- NOTE | 2020-07-22 16:47 | NUR ---
TRANSFER: Pt cleared by ERMD to be transferred to [facility]. Report given to Elijah SERRANO. Pt was picked by 2 EMT via [employer]. Pt AAOx1, No SOB, on room air. IV line on right forearm 20g patent and intact. All belongings sent with the patient. Family member aware of the transfer.
== END 2020-07-22 16:00 | disposition short-term general hospital (02) ==
LOC: EMR 10:04
DX: K92.2 Gastrointestinal hemorrhage, unspecified (principal); R19.7 Diarrhea, unspecified; I10 Essential (primary) hypertension; F03.90 Unspecified dementia, unspecified severity, without behavioral disturbance, psychotic disturbance, mood disturbance, and anxiety; Z88.0 Allergy status to penicillin
CPT/HCPCS: 36415; 80053; 81003; 83690; 84484; 85025; 85610; 85730; 86850; 86900; 86901; 87086; 96360; 99284; J7030